=== PATIENT | male | born 1950 | race Caucasian/White ===

== ENCOUNTER → 2017-09-09 | Outpatient (CLI) | payer BC ==
[~2017-09-09] MED LIST: ADVIN50/60 INH; ASPI325T45 PO; MONT1TAB3 PO; OPTIRAY 320 IV PRN
--- NOTE | 2017-09-09 08:36 | DIAGNOSTIC IMAGING REPORT ---
(CHEST) THORAX WITH CLINICAL HISTORY: 66 years-old Male presenting with PULMONARY NODULES. TECHNIQUE: Multidetector CT imaging of the chest was performed after the administration of intravenous contrast. IV contrast: None. A dose lowering technique was used consistent with the principles of ALARA (as low as reasonably achievable). COMPARISON: 10/30/2016. CT DOSE (mGy.cm): The estimated cumulative dose is 843.24 mGy.cm. FINDINGS: Heel Cover Splitter topogram: Unremarkable. On soft tissue windows, 12 mm nodule in the left lobe of the thyroid with a small focus of calcification. No axillary, supraclavicular, hilar, or mediastinal lymphadenopathy. Normal aorta. Normal heart size. Coronary artery calcification. No pericardial or pleural effusion. Well-defined hypodensity in the right hepatic lobe, indeterminate but likely cyst, unchanged. Moderate to severe parenchymal atrophy of the pancreas. On lung windows, calcified granuloma noted in the right upper lobe. Subpleural solid 3-4 mm nodule in the right lower lobe (series 4 image 222), unchanged. Solid triangular 3-4 mm fissural nodule in the right upper lobe (series 4 image 143), unchanged. Persistent bandlike opacities in the lingula, likely scarring. No new pulmonary nodule. Airways patent. On bone windows, normal osseous structures. IMPRESSION: 1. Stable solid pulmonary nodules measuring up to 3-4 mm. No new pulmonary nodule. No further follow-up is warranted based on these nodules alone. Please refer to below summary of Fleischner Society 2017 recommendations for follow-up of incidental CT nodules (H Katlin et al. Guidelines for management of incidental pulmonary nodules detected on CT images: From the Fleischner Society 2017. Radiology 2017; 284: 228-243.) SOLID NODULES Single nodule; size < 6 mm * Low risk patients: No routine follow-up * High risk patients: Optional CT at 12 months Single nodule; size 6-8 mm * Low risk patients: CT at 6-12 months, then consider CT at 18-24 months * High risk patients: CT at 6-12 months, then at 18-24 months Single nodule; size > 8 mm * Either low or high risk patients: Considered CT at 3 months, PET/CT, or tissue sampling Multiple nodules; size < 6 mm * Low risk patients: No routine follow up * High risk patients: Optional CT at 12 months Multiple nodules; size 6-8 mm * Low risk patients: CT at 3-6 months, then consider CT at 18-24 months * High risk patients: CT at 3-6 months, then at 18-24 months Multiple nodules; size > 8 mm * Low risk patients: CT at 3-6 months, then consider at 18-24 months * High risk patients: CT at 3-6 months, then at 18-24 months Note: These guidelines apply to incidental nodules. These guidelines do not apply to patients younger than 35 years, immunocompromised patients, or patients with cancer. * Low risk patients: Minimal or absent history of smoking and/or other known risk factors * High risk patients: History of smoking, exposure to other carcinogens, emphysema, fibrosis, upper lobe location, family history of lung cancer, etc. * If a nodule up to 8 mm is partly solid or is ground glass, further follow-up is required after 24 months to exclude possible slow growing adenocarcinoma. SUBSOLID NODULES Single ground-glass nodule * Nodule size < 6 mm: No routine follow-up * Nodule size > or = 6 mm: CT at 6-12 months to confirm persistence, then CT every 2 years until 5 years Single part-solid nodule * Nodule size < 6 mm: No routine follow-up * Nodules size > or = 6 mm: CT at 3-6 months to confirm persistence. If unchanged and solid component remains < 6 mm, annual CT should be performed for 5 years Multiple nodules * Nodule size < 6 mm: CT at 3-6 months. If stable, consider CT at 2 and 4 years. * Nodules size > or = 6 mm: CT at 3-6 months. Subsequent management based on the most suspicious nodule(s) Electronically signed by: Francis Guevara M.D. 09/09/2017 8:35 AM Dictated Date/Time: 09/09/2017 8:29 AM
== END | disposition home or self-care (01) ==
LOC: C.CTS 08:10
PROVIDERS: ATTEND Internal Medicine Pulmonary Disease
DX: R91.8 Other nonspecific abnormal finding of lung field (principal)

== ENCOUNTER 2018-03-09 06:44 | Emergency (ER) | payer BC ==
[~2018-03-09] VITALS: Ht 182.9 cm; Wt 140.4 kg
[~2018-03-09 06:44] MED LIST changes: -OPTIRAY 320 IV PRN
[2018-03-09 06:49] VITALS: TEMP 36.5; Ht 182.9 cm; Wt 140.4 kg
[2018-03-09] MEDS ORDERED: METO25TA56 PO (07:32)
[2018-03-09] MEDS ORDERED: VNTHFA/IN INH (07:32)
[2018-03-09] MEDS ORDERED: KETOROLAC TROMETHAMINE 30 MG/ML VIAL IV STA (07:45)
--- NOTE | 2018-03-09 08:08 | DIAGNOSTIC IMAGING REPORT ---
R ANKLE MIN 3 VIEWS ROUTINE HISTORY: 67 years-old Male r ankle pain acute right-sided ankle pain COMPARISON: Right foot radiographs 06/14/2015 TECHNIQUE: 3 views of the right ankle FINDINGS: There is a 2 mm bone fragment adjacent to the medial malleolus seen only on the AP projection demonstrates apparent corticated margins. No acute displaced fracture or dislocation. No osteochondral defect. There is moderate soft tissue swelling about the ankle with a moderate-sized joint effusion. Mild dorsal spurring about the midfoot. No opaque foreign body. IMPRESSION: 1. 2 mm bone fragment adjacent to the medial malleolus appears to have corticated margins suggesting remote avulsion fracture. 2. Moderate circumferential soft tissue swelling with moderate sized joint effusion. No acute displaced fracture or dislocation. The above report was generated using voice recognition software. It may contain grammatical, syntax or spelling errors. Electronically signed by: Shyam Barfield M.D. 03/09/2018 8:06 AM Dictated Date/Time: 03/09/2018 8:03 AM
[2018-03-09 08:24] LABS: BASO % 0.2 %; BASO ABS # 0.02 K/uL (0-0.2); EOS ABS # 0.08 K/uL (0-0.5); HEMOGLOBIN 14.7 g/dL (14.0-18.0); IG# 0.01 K/uL (0.00-0.02); LYMPH % 16.9 %; LYMPH ABS # 1.36 K/uL (1.2-3.4); MEAN CELL VOLUME 88.5 fL (80-100); MEAN CORPUSCULAR HEMOGLOBIN 29.6 pg (25-34); MEAN CORPUSCULAR HGB CONC 33.4 g/dl (32-36); MEAN PLATELET VOLUME 9.6 fL (7.4-10.4); MONO % 8.8 %; MONO ABS # 0.71 K/uL (0.11-0.59); NEUT ABS # 5.88 K/uL (1.4-6.5); PLATELET COUNT 280 K/uL (130-400); RED CELL DISTRIBUTION WIDTH CV 14.3 % (11.5-14.5); RED CELL DISTRIBUTION WIDTH SD 46.7 fL (36.4-46.3); WHITE BLOOD COUNT 8.06 K/uL (4.8-10.8)
[2018-03-09 08:39] LABS: CALCIUM 8.4 mg/dl (8.5-10.1); CREATININE 0.96 mg/dl (0.60-1.40); POTASSIUM 4.3 mmol/L (3.5-5.1); URIC ACID 8.5 mg/dl (2.6-7.2)
[2018-03-09] MEDS ORDERED: MoRPHine SULFATE 4 MG/ML 1 ML CARP\\VIAL IV STA (08:55)
[2018-03-09] MEDS ORDERED: ONDANSETRON INJ 2 MG/ML 2 ML VIAL IV STA (08:55)
[2018-03-09] MEDS ORDERED: NAPR-1169 PO (09:54)
[2018-03-09 10:07] VITALS: BP 120/98; PULSE 60; O2SAT 93
--- NOTE | 2018-03-09 16:06 | EMERGENCY ROOM VISIT NOTE ---
ED Visit Note First contact with patient: 07:15 Chief Complaint: Right ankle pain. History of Present Illness: Mr. Cantu is a 67-year-old white male who ambulates into the ED complaining of medial right ankle pain. Historically patient reports she has a history of gout of the right great toe. Patient reports approximately 24 hours ago he awoke from sleep and noted right ankle pain and swelling. Patient reports her last 24 hours he has been using ice rest and aspirin and had mild improvement of his pain. Currently he is describing his pain as a deep achy sensation. He rates his discomfort 9/10. The pain is nonradiating. The pain worsens with palpation of the bilateral malleoli with prominence over the medial aspect, inversion and eversion of the ankle and ambulation. As previously noted ice, aspirin and rest of improved his discomfort. He denies any associated symptoms including back pain, hip pain, knee pain, lower leg pain, foot weakness/numbness/tingling , recent direct or repetitive trauma to the ankle or foot. Review of Systems: As noted above in history of present illness. Past Medical History: As previously noted, asthma, pneumonia, unspecified knee surgery. Current Medications: Medications Dose Route/Sig Max Daily Dose Days Date Category Naprosyn (Naproxen) 500 Mg Tab 500 Mg PO BID 10 03/09/18 Rx Ventolin Hfa (Albuterol) 200 Puffs/15779 Mcg Aers 2-4 Puffs INH Q6H PRN 03/09/18 Reported Lopressor (Metoprolol Tartrate) 25 Mg Tab 1 Tab PO BID 03/09/18 Reported Aspirin 325 Mg Tab 1,300-1,625 Mg PO 2-3XD 06/14/15 Reported Advair Diskus 500/50 60 Dose (Fluticasone Prop/Salmeterol) 1 Ea Aerp 1 Puff INH BID 06/14/15 Reported Singulair (Montelukast Sodium) 10 Mg Tab 10 Mg PO DAILY 06/14/15 Reported Allergies to Medications: Patient denies Social History: Patient is currently employed; he feels safe in his home environment; he denies tobacco and alcohol use. Physical Examination: Vital Signs: Date Time Temp Pulse Resp B/P (MAP) Pulse Ox O2 Delivery O2 Flow Rate FiO2 03/09/18 10:07 60 16 120/98 93 03/09/18 09:16 50 20 140/92 96 03/09/18 06:49 36.5 70 18 180/110 95 Room Air GENERAL: 67-year-old male in mild to moderate distress due to pain, nontoxic- appearing, afebrile and hemodynamically stable. NEUROLOGICAL: Awake, alert and oriented to person, place and time. Answering questions appropriately and following commands. Limped gait. Good hand eye coordination. No focal motor sensory deficits. SKIN: Warm, dry and pink. HEENT: Atraumatic and normocephalic. BACK: No tenderness over the bony spine. THORAX: Lungs sounds are clear to auscultation and equal bilaterally with symmetrical chest wall. No wheezing, rales or rhonchi. ABDOMEN: Obese, soft and nontender. Positive bowel sounds in all quadrants. No guarding, rigidity or organomegaly. RIGHT LOWER EXTREMITY: Showed no gross deformities. No tenderness throughout the knee, lower leg or foot. Moderate tenderness over the medial and lateral malleoli with moderate swelling and mild erythema. There is mild warmth to the skin but it does not appear cellulitic. There is no lymphangitis. Full range of motion in plantarflexion and dorsiflexion of the ankle and decreased range of motion in inversion and eversion of the ankle due to pain. Throughout the foot the skin was warm and pink and capillary refill was brisk. He was able to distinguish light sensations to all dermatomes of the foot. No calf tenderness or cords. ED Course: Patient is assessed as noted above. Patient's medication list was reviewed. Laboratory Testing: Test 03/09/18 08:14 03/09/18 09:20 Range/Units White Blood Count 8.06 4.8-10.8 K/uL Red Blood Count 4.97 4.7-6.1 M/uL Hemoglobin 14.7 14.0-18.0 g/dL Hematocrit 44.0 42-52 % Mean Corpuscular Volume 88.5 80-100 fL Mean Corpuscular Hemoglobin 29.6 25-34 pg Mean Corpuscular Hemoglobin Concent 33.4 32-36 g/dl Platelet Count 280 130-400 K/uL Mean Platelet Volume 9.6 7.4-10.4 fL Neutrophils (%) (Auto) 73.0 % Lymphocytes (%) (Auto) 16.9 % Monocytes (%) (Auto) 8.8 % Eosinophils (%) (Auto) 1.0 % Basophils (%) (Auto) 0.2 % Neutrophils # (Auto) 5.88 1.4-6.5 K/uL Lymphocytes # (Auto) 1.36 1.2-3.4 K/uL Monocytes # (Auto) 0.71 0.11-0.59 K/uL Eosinophils # (Auto) 0.08 0-0.5 K/uL Basophils # (Auto) 0.02 0-0.2 K/uL RDW Standard Deviation 46.7 36.4-46.3 fL RDW Coefficient of Variation 14.3 11.5-14.5 % Immature Granulocyte % (Auto) 0.1 % Immature Granulocyte # (Auto) 0.01 0.00-0.02 K/uL Sodium Level 138 136-145 mmol/L Potassium Level 4.3 3.5-5.1 mmol/L Chloride Level 105 98-107 mmol/L Carbon Dioxide Level 28 21-32 mmol/L Anion Gap 5.0 3-11 mmol/L Blood Urea Nitrogen 19 7-18 mg/dl Creatinine 0.96 0.60-1.40 mg/dl Est Creatinine Clear Calc Drug Dose 110.0 ml/min Estimated GFR () 95.1 Estimated GFR (Non- 82.0 BUN/Creatinine Ratio 19.8 10-20 Random Glucose 114 70-99 mg/dl Uric Acid 8.5 2.6-7.2 mg/dl Calcium Level 8.4 8.5-10.1 mg/dl Urine Color YELLOW Urine Appearance CLEAR CLEAR Urine pH 5.5 4.5-7.5 Urine Specific [place] 1.030 1.000-1.030 Urine Protein NEG NEG Urine Glucose (UA) NEG NEG Urine Ketones NEG NEG Urine Occult Blood NEG NEG Urine Nitrite NEG NEG Urine Bilirubin NEG NEG Urine Urobilinogen NEG NEG Urine Leukocyte Esterase NEG NEG Right ankle X-Rays: Were read by myself and the radiologist and shows 1. 2 mm bone fragment adjacent to the medial malleolus appears to have corticated margins suggesting remote avulsion fracture and moderate circumferential soft tissue swelling with moderate sized joint effusion. No acute displaced fracture or dislocation. An IV lock was initiated and patient initially received 30 mg of Toradol IV for pain and on reassessment received an additional 4 mg of morphine IV and 4 mg of Zofran IV for his pain. Patient was reassessed multiple times during his stay in the emergency department. Patient's case was reviewed with Dr. Sheppard; we agreed on diagnostic approach, treatment, disposition and plan. Patient was offered a postop shoe, crutches and/or walker and refused. Patient was educated about today's findings and instructed on his treatment plan ; he verbalized understanding and agreement with this plan. Clinical Impression: Right ankle pain. Gout exacerbation. Decision-Making: Initially my differential diagnosis I considered ankle sprain, gout exacerbation, joint infection, skin infection and other causes. Disposition: Patient discharged home in stable condition accompanied by his ; prior to departure he was reassessed and subjectively reported he was feeling better and rated his discomfort 2/10. Plan: Patient was encouraged to continue his current medications as prescribed. Patient was prescribed 500 mg of naproxen 2 times a day until resolution of symptoms. Patient was encouraged to keep his foot elevated while at rest. Patient was encouraged to use walker and nonweightbearing crutches. Patient was encouraged to follow-up with his PCP for recheck. Patient was encouraged return the ED for worsening/uncontrolled pain, uncontrolled swelling, fevers, foot weakness/numbness/tingling or any new/ concerning symptoms.
== END 2018-03-09 10:08 | disposition home or self-care (01) ==
LOC: C.EDB 06:46 → C.EDA 10:08
DX: M25.571 Pain in right ankle and joints of right foot (principal); M10.9 Gout, unspecified; J45.909 Unspecified asthma, uncomplicated

== ENCOUNTER → 2018-03-27 | Outpatient (CLI) | payer BC ==
[~2018-03-27] MED LIST changes: +ASPECOTC PO; -ASPI325T45 PO; +METO25TA56 PO; +VNTHFA/IN INH
== END | disposition home or self-care (01) ==
LOC: C.LABBC 14:09
PROVIDERS: ATTEND Family Medicine Adult Medicine
DX: E04.1 Nontoxic single thyroid nodule (principal); R20.2 Paresthesia of skin

== ENCOUNTER → 2018-04-03 | Outpatient (CLI) | payer BC ==
--- NOTE | 2018-04-03 08:55 | DIAGNOSTIC IMAGING REPORT ---
SOFT TISS HEAD/NECK-THYROID HISTORY: Thyroid nodules E04.1 Thyroid nodulefollow up size of thyroid [id number] COMPARISON: 11/17/2016 FINDINGS: Right lobe: 5.1 cm maximum dimension. Several very small hypoechoic nodules measuring no more than 2 mm. Left lobe: Maximum dimension 4.7 cm. Upper pole nodule measuring 1.8 x 1.5 cm. Several smaller micronodules unchanged Isthmus: No nodules. IMPRESSION: Multicystic multinodular thyroid with the largest at the juncture of the mid and upper pole left lobe. This measures 1.8 x 1.5 cm and is stable to perhaps slightly diminished in size compared to the prior study. The above report was generated using voice recognition software. It may contain grammatical, syntax or spelling errors. Electronically signed by: Adriel Dominguez M.D. 04/03/2018 8:54 AM Dictated Date/Time: 04/03/2018 8:48 AM
== END | disposition home or self-care (01) ==
LOC: C.ULTR 08:22
PROVIDERS: ATTEND Family Medicine Adult Medicine
DX: E04.2 Nontoxic multinodular goiter (principal); E07.89 Other specified disorders of thyroid

== ENCOUNTER 2022-09-16 15:19 | Inpatient (IN) ==
[2022-09-16] MEDS ORDERED: dilTIAZem HCl 5 MG/ML 5 ML VIAL IV STA (15:48)
[2022-09-16] MEDS ORDERED: dilTIAZem HCl 5 MG/ML 5 ML VIAL IV ONE (15:48)
[2022-09-16] MEDS ORDERED: SODIUM CHLORIDE 0.9% 1000ML 1,000 ML IV ONE (15:48)
--- NOTE | 2022-09-16 15:51 | Emergency Department Note ---
Impression & Plan Atrial flutter ADMIT ED Provider Note HPI: The patient is a 71-year-old gentleman with history of COPD, morbid obesity, presents the emergency department with a chief complaint of shortness of breath that has been worsening for the past 2 weeks. Patient states that he was seen today in his outpatient providers office in [place] and advised to come to the emergency department as he was noted to have what appeared to be atrial fibrillation with a heart rate of 150. On arrival here to the ED the patient is saturating well on room air, he is noted to be tachycardic in the 150s, EKG does show evidence of what appears to be atrial flutter with variable block. Patient denies any chest pain, on arrival here to the ED he is otherwise hemodynamically stable, complains of some subjective shortness of breath but he is saturating well on room air and otherwise is in no acute distress. ROS: -Pulmonary: Shortness of breath -Cardio: Palpitations/new onset atrial flutter *10 point review systems was conducted and is otherwise negative unless stated above *Outpatient medications and allergy history reviewed PE: General: Alert HEENT: Normocephalic, trachea midline Eyes: Extraocular eye movement is intact, no scleral erythema Pulmonary: Clear to auscultation bilaterally, no wheezing Cardio: Tachycardic rate and regular rhythm GI: Abdomen is soft, nontender : No suprapubic tenderness MSK: No evidence of trauma or malformation of the extremities, no edema Skin: No evidence of rash Neuro: Alert, no focal deficits Psychiatric: Cooperative monitor car operator: - An order was placed for continuous cardiac monitoring - Patient was noted to be in atrial flutter with a rate of 148 EKG #1: Rate: 121 Rhythm: Atrial flutter with variable AV block Intervals: Within normal limits ST changes: No ST elevation Time: 1535 EKG #2: Rate: 105 Rhythm: Atrial flutter with variable AV block Intervals: Within normal limits ST changes: No ST elevation Time: 1557 Interventions provided in ED: -IV of diltiazem bolus, IV fluid bolus, IV metoprolol, p.o. Eliquis Medical Decision Making: Patient presented to the emergency department with chief complaint of shortness of breath, he was noted to be in atrial flutter with variable block on arrival, he was given a diltiazem bolus with good response. Patient denied any chest pain on arrival. IV was established, lab work obtained, patient was maintained on hospital monitor with good improvement in his rate following IV diltiazem, CT angiography of the chest was obtained that does not show any evidence of pulmonary embolism. Patient's rate did increase slightly to the low 100s and therefore was given dose of IV metoprolol as well as he states this is one of his home medications. This did result in a good response. Lab work otherwise does not show any evidence of critical electrolyte abnormalities, potassium and magnesium are within normal limits, TSH is within normal limits. Troponin was obtained and is slightly elevated at 29.8, patient denies any chest pain, suspect this is demand ischemia, he has been symptomatic for almost 2 weeks, hard to tell when his symptoms began in regards to the atrial flutter, therefore will not consider cardioversion at this time. Patient is rate con trolled, discussed with on-call cardiology, Dr. Jennings, I recommended starting the patient on Xarelto and admission to a telemetry bed for further care. I then discussed case with the on-call hospitalist , Dr. Diane, who admitted the patient to a telemetry bed for further management. * CRITICAL CARE TIME: (45 ) minutes -Stabilization of tachyarrhythmia requiring IV medications for rate control, time spent at the bedside, discussion with other physicians and arrangement of admission for new onset atrial flutter Diagnosis: 1. New onset atrial flutter 2. Dyspnea 3. Elevated high-sensitivity troponin level, mild Disposition: ADMIT Adriel Escalona, DO Emergency Medicine Past Med/Surg History Medical History Chronic sinusitis COPD (chronic obstructive pulmonary disease) Environmental allergies Gout attack History of colon polyps Hypertension Incomplete RBBB Morbid obesity Palpitations Prediabetes Sleep apnea Thyroid nodule Umbilical hernia Surgical History H/O left knee surgery Family History Sister Bipolar disorder Colorectal cancer Grandfather Colorectal cancer Denies family history of Ovarian cancer Prostate cancer Myocardial infarction Breast cancer Social History Smoking Status: Never smoker Second Hand Exposure: No; Hx Alcohol Use: No Hx Substance Use: No Preferred Language: Dutch Communication Ability: Effective Visual Impairment: Limited Hearing Ability: Normal Public Relations Account Executive Required: No Beliefs That Will Affect Care: None marital status: Current Living Situation: Spouse current occupational status: employed current occupation: self employed How many Children do You have: 1 Feels Safe at Home: Yes Safety Concerns: Feels Safe At This Time Childhood Exposure to Second-Hand Smoke: Yes (dad did ) caffeine: Yes (coffee soda) Dental Care, Regularly: No Physical Activity Frequency: Does not Exercise Seatbelt Use: never Sunscreen Use: No Assistive Devices: Glasses Allergies Allergies Allergy/AdvReac Type Severity Reaction Status Date / Time animal dander Allergy Mild congestion Verified 09/16/22 18:40 mold Allergy Mild congestion Verified 09/16/22 18:40 Home Meds Home Medications Medication Instructions Recorded Confirmed amoxicillin 875 mg-potassium 1 tab PO BID 09/16/22 09/16/22 clavulanate 125 mg tablet meloxicam 15 mg tablet 15 mg PO DAILY 09/16/22 09/16/22 mometasone-formoterol HFA 200 2 inh inhalation BID 09/16/22 09/16/22 mcg-5 mcg/actuation aerosol inhaler (Dulera) prednisone 10 mg tablet 0 mg PO DIRECTED 09/16/22 09/16/22 Previous Rx's Medication Instructions Recorded allopurinol 300 mg tablet 300 mg PO PM #90 tabs 12/03/21 losartan 25 mg tablet 25 mg PO PM #90 tabs 12/03/21 metoprolol tartrate 25 mg tablet 25 mg PO BID #180 tabs 12/03/21 albuterol sulfate 90 mcg/actuation 2 puff inhalation Q6H PRN 04/08/22 aerosol inhaler (Ventolin HFA) shortness of breath or wheezing #8.5 grams Results & Data (ED) Vital Signs Vital Signs - 24 hr 09/16/22 15:24 09/16/22 15:45 09/16/22 15:46 Temperature 37.2 C Temperature Source Temporal Artery Scan Pulse Rate 118 H Pulse Rate [Apical] 154 H Pulse Rhythm [Apical] Pulse Strength [Apical] Respiratory Rate 22 20 Respiratory Effort / Characteristics Non-Labored Spontaneous Respiratory Depth Normal Respiratory Pattern Regular Blood Pressure 124/87 Blood Pressure [Right Arm] 142/104 H Blood Pressure Mean 99 Blood Pressure Mean [Right Arm] 116 Blood Pressure Position Sitting Blood Pressure Position [Right Arm] Pulse Oximetry 95 97 97 Oxygen Delivery Method Room Air Room Air Room Air Sepsis Recent Fever Within 48 Hours No Sepsis New/Unexplained Change in Mental Status N/A Sepsis Action Taken by Nursing No Action Required 09/16/22 15:49 09/16/22 17:19 09/16/22 17:30 Temperature Temperature Source Pulse Rate 132 H 105 H Pulse Rate [Apical] 100 H Pulse Rhythm [Apical] Irregular Pulse Strength [Apical] Normal Respiratory Rate 20 24 Respiratory Effort / Characteristics Labored Respiratory Depth Shallow Respiratory Pattern Tachypnea Blood Pressure 135/94 Blood Pressure [Right Arm] 144/91 H Blood Pressure Mean Blood Pressure Mean [Right Arm] 108 Blood Pressure Position Blood Pressure Position [Right Arm] Sitting Pulse Oximetry 98 96 Oxygen Delivery Method Room Air Room Air Sepsis Recent Fever Within 48 Hours Sepsis New/Unexplained Change in Mental Status Sepsis Action Taken by Nursing Laboratory Data Result diagrams: 09/16/22 15:40 09/16/22 15:40 Lab Results 09/16/22 09/16/22 09/16/22 Range/Units 15:40 15:40 15:40 WBC 12.33 H (4.8-10.8) K/ul RBC 4.87 (4.63-6.08) M/uL Hgb 14.2 (14.0-18.0) g/dl Hct 43.8 (40.1-51.0) % MCV 89.9 (80.0-100.0) fL MCH 29.2 (25.0-34.0) pg MCHC 32.4 (32.0-36.0) g/dL RDW Std Deviation 46.9 H (36.4-46.3) fL RDW Coeff of Michelle 14.3 (11.5-14.5) % Plt Count 284 (130-400) K/uL MPV 10.1 (9.4-12.4) fL Immature Gran % (Auto) 0.3 % Neut % (Auto) 73.9 % Lymph % (Auto) 17.1 % [place] % (Auto) 7.7 % Eos % (Auto) 0.4 % Baso % (Auto) 0.6 % Neut # (Auto) 9.11 H (1.4-6.5) K/uL Lymph # (Auto) 2.11 (1.2-3.4) K/uL [place] # (Auto) 0.95 H (0.24-0.82) K/uL Eos # (Auto) 0.05 (0-0.50) K/uL Baso # (Auto) 0.07 (0-0.2) K/uL Immature Gran # (Auto) 0.04 H (0.00-0.02) K/uL Sodium 142 (136-145) mmol/L Potassium 3.9 (3.5-5.1) mmol/L Chloride 106 (98-107) mmol/L Carbon Dioxide 30 (21-32) mmol/L Anion Gap 6 (3-11) BUN 22 (6-23) mg/dl Creatinine 0.97 (0.6-1.4) mg/dl Est Cr Clr Drug Dosing 104.0 ml/min Est GFR ( Amer) 91.3 ml/min Est GFR (Non-Af Amer) 78.8 ml/min BUN/Creatinine Ratio 22.7 H (10-20) Glucose 112 H (70-99(Fasting)) mg/dl Calcium 8.6 (8.5-10.1) mg/dl Magnesium (1.7-2.4) mg/dl Total Bilirubin 0.7 (0.2-1.0) mg/dl AST 13 (13-39) U/L ALT 21 (7-52) U/L Alkaline Phosphatase 62 (34-104) U/L Troponin I High Sens 29.8 H (0-20) pg/ml Total Protein 5.8 L (6.0-8.3) gm/dl Albumin 3.7 (3.4-5.0) gm/dl Globulin 2.1 L (2.5-4.0) gm/dl Albumin/Globulin Ratio 1.8 (0.9-2) TSH (0.300-4.500) uIu/ml 09/16/22 09/16/22 Range/Units 15:40 15:40 WBC (4.8-10.8) K/ul RBC (4.63-6.08) M/uL Hgb (14.0-18.0) g/dl Hct (40.1-51.0) % MCV (80.0-100.0) fL MCH (25.0-34.0) pg MCHC (32.0-36.0) g/dL RDW Std Deviation (36.4-46.3) fL RDW Coeff of Michelle (11.5-14.5) % Plt Count (130-400) K/uL MPV (9.4-12.4) fL Immature Gran % (Auto) % Neut % (Auto) % Lymph % (Auto) % [place] % (Auto) % Eos % (Auto) % Baso % (Auto) % Neut # (Auto) (1.4-6.5) K/uL Lymph # (Auto) (1.2-3.4) K/uL [place] # (Auto) (0.24-0.82) K/uL Eos # (Auto) (0-0.50) K/uL Baso # (Auto) (0-0.2) K/uL Immature Gran # (Auto) (0.00-0.02) K/uL Sodium (136-145) mmol/L Potassium (3.5-5.1) mmol/L Chloride (98-107) mmol/L Carbon Dioxide (21-32) mmol/L Anion Gap (3-11) BUN (6-23) mg/dl Creatinine (0.6-1.4) mg/dl Est Cr Clr Drug Dosing ml/min Est GFR ( Amer) ml/min Est GFR (Non-Af Amer) ml/min BUN/Creatinine Ratio (10-20) Glucose (70-99(Fasting)) mg/dl Calcium (8.5-10.1) mg/dl Magnesium 2.1 (1.7-2.4) mg/dl Total Bilirubin (0.2-1.0) mg/dl AST (13-39) U/L ALT (7-52) U/L Alkaline Phosphatase (34-104) U/L Troponin I High Sens (0-20) pg/ml Total Protein (6.0-8.3) gm/dl Albumin (3.4-5.0) gm/dl Globulin (2.5-4.0) gm/dl Albumin/Globulin Ratio (0.9-2) TSH 3.087 (0.300-4.500) uIu/ml Administered Medications Allopurinol (Allopurinol 300 Mg Tab) 300 mg PO PM CARMEN Stop: 10/16/22 20:59 Last Admin: 09/16/22 21:03 Dose: 300 mg Documented By: ARR Insulin Aspart (Insulin Aspart Per Unit) 0 units SC ACHS CARMEN Stop: 10/16/22 20:59 Last Admin: 09/16/22 21:05 Dose: Not Given Documented By: ARR Losartan Potassium (Losartan Potassium 25 Mg Tab) 25 mg PO PM CARMEN Stop: 10/16/22 20:59 Last Admin: 09/16/22 21:03 Dose: 25 mg Documented By: ARR Discontinued Medications Aspirin (Aspirin Chew 324 Mg) 324 mg PO NOW STA Stop: 09/16/22 18:19 Last Admin: 09/16/22 18:37 Dose: 324 mg Documented By: RSL Diltiazem HCl (Diltiazem Hcl 5 Mg/Ml 5 Ml Vial) Confirm Administered Dose 25 mg IV .STK-MED ONE Stop: 09/16/22 15:49 Last Admin: 09/16/22 15:53 Dose: Not Given Documented By: QGV Diltiazem HCl (Diltiazem Hcl 5 Mg/Ml 5 Ml Vial) 15 mg IV NOW STA Stop: 09/16/22 15:49 Last Admin: 09/16/22 15:50 Dose: 15 mg Documented By: QGV Co-signed By: MARIS Sodium Chloride (Nss 1000ml) 1,000 mls @ 999 mls/hr IV .Q1H1M ONE Stop: 09/16/22 16:48 Last Infusion: 09/16/22 17:17 Dose: 0 mls/hr Documented By: Admin: 09/16/22 15:52 Dose: 999 mls/hr Documented By: QGV Ioversol (Optiray 320 500ml) 114 ml IV ONCE ONE Stop: 09/16/22 17:49 Last Admin: 09/16/22 17:48 Dose: 114 ml Documented By: [facility] Metoprolol Tartrate (Metoprolol Tartrate 1 Mg/Ml Vial) 5 mg IV NOW STA Stop: 09/16/22 17:23 Last Admin: 09/16/22 17:30 Dose: 5 mg Documented By: RSL Potassium Chloride (Potassium Chloride Crtab 20 Meq Tabcr) 40 meq PO NOW STA Stop: 09/16/22 19:10 Last Admin: 09/16/22 21:02 Dose: 40 meq Documented By: ARR Imaging Data Radiologist's Impression: Chest X-Ray 09/16/22 15:34 SINGLE VIEW CHEST CLINICAL HISTORY: Dyspnea. FINDINGS: An AP, portable, upright chest radiograph is correlated with chest CT dated 09/09/2017. The examination is degraded by portable technique and apical lordotic positioning. The heart is enlarged noting atherosclerotic calcification of the thoracic aorta. The pulmonary vasculature is noncongested. Scarring/atelectasis is seen at the lung bases. A calcified granuloma is again seen in the right upper lobe. The lungs and pleural spaces are otherwise clear. No pneumothorax is seen. The skeletal structures are osteopenic. The bony thorax is grossly intact. Arthritic change is seen in the shoulders. IMPRESSION: No active disease in the chest. ACT 112: Negative or not required by law. Electronically signed by: Fuentes Pizarro M.D. 09/16/2022 4:20 PM Chest CTA 09/16/22 17:23 CT ANGIOGRAM OF THE CHEST CLINICAL HISTORY: Dyspnea. Tachycardia. COMPARISON STUDY: Chest CT dated 09/09/2017. Chest x-ray dated 09/16/2022. TECHNIQUE: Following the IV administration of 114 cc of Optiray 320, CT angiogram of the chest was performed from the upper abdomen to the thoracic inlet utilizing the pulmonary embolus protocol. Images are reviewed in the axial, sagittal, and coronal planes. 3-D MIPS images are created and assessed. IV contrast was administered without complication. A dose lowering technique was utilized adhering to the principles of ALARA. The examination is degraded by motion artifact. CT DOSE: 933.35 mGy.cm FINDINGS: Thyroid: Imaged portions of the thyroid gland are normal in size and attenuation. Thoracic aorta: The thoracic aorta is normal in caliber and demonstrates standard 3-vessel arch anatomy. The thoracic aorta is not opacified. Pulmonary vasculature: The pulmonary trunk is normal in caliber. There are no filling defects identified in main, lobar, or proximal segmental pulmonary b ranches to suggest pulmonary embolus. The segmental and subsegmental vessels are not well assessed due to motion artifact. Heart: The heart is markedly enlarged and without pericardial effusion. The coronary arteries are densely calcified. Lungs and pleural spaces: Evaluation of the lung parenchyma is compromised by motion artifact. There are trace pleural effusions with dependent atelectasis. No airspace consolidation is seen typical for pneumonia. The trachea and central airways are clear. There are scattered calcified granulomas. Mediastinum: Mildly enlarged mediastinal lymph nodes measure up to 15 mm in short axis. Iram: Clear. Axillae: There is no axillary lymphadenopathy. Upper abdomen: There is a tiny hiatal hernia. Diverticula are noted in the partially imaged left colon. Skeletal structures: The skeletal structures are osteopenic. No lytic or blastic bony lesions are seen. IMPRESSION: 1. Motion compromised examination. 2. There is no evidence of pulmonary embolus in the main, lobar, or proximal segmental pulmonary arteries. 3. Marked cardiomegaly and trace pleural effusions. 4. Mildly enlarged mediastinal lymph nodes are nonspecific and may be reactive. 5. Additional findings as above. ACT 112: Negative or not required by law. Electronically signed by: Fuentes Pizarro M.D. 09/16/2022 5:58 PM Discharge Plan Visit Data Chief Complaint: Shortness of Breath/Dyspnea Stated Complaint: SOB ED Provider: Adriel Escalona Discharge Problem: Atrial flutter Patient Disposition: Admitted As Inpatient Discharge Instructions Interventions: ED Discharge Assessment Last Done: 09/16/22 19:48 : Atrial flutter Qualifiers: Atrial flutter type: unspecified Qualified Code(s): I48.92 - Unspecified atrial flutter
[2022-09-16 16:08] LABS: Basophils # (auto) 0.07 K/uL (0-0.2); Basophils % (auto) 0.6 %; Eosinophils # (auto) 0.05 K/uL (0-0.50); Eosinophils % (auto) 0.4 %; Hematocrit (blood only) 43.8 % (40.1-51.0); Hemoglobin 14.2 g/dl (14.0-18.0); Immature Granulocytes # (auto) 0.04 K/uL (0.00-0.02); Immature Granulocytes % (auto) 0.3 %; Lymphocytes # (auto) 2.11 K/uL (1.2-3.4); Lymphocytes % (auto) 17.1 %; Mean Corpuscular Hemoglobin 29.2 pg (25.0-34.0); Mean Corpuscular Hgb Conc 32.4 g/dL (32.0-36.0); Mean Corpuscular Volume 89.9 fL (80.0-100.0); Mean Platelet Volume 10.1 fL (9.4-12.4); Monocytes # (auto) 0.95 K/uL (0.24-0.82); Monocytes % (auto) 7.7 %; Neutrophils # (auto) 9.11 K/uL (1.4-6.5); Neutrophils % (auto) 73.9 %; Platelet Count 284 K/uL (130-400); RDW Coefficient of Variation 14.3 % (11.5-14.5); RDW Standard Deviation 46.9 fL (36.4-46.3); Red Blood Count 4.87 M/uL (4.63-6.08); White Blood Count 12.33 K/ul (4.8-10.8)
--- NOTE | 2022-09-16 16:22 | XRay Report ---
SINGLE VIEW CHEST CLINICAL HISTORY: Dyspnea. FINDINGS: An AP, portable, upright chest radiograph is correlated with chest CT dated 09/09/2017. The examination is degraded by portable technique and apical lordotic positioning. The heart is enlarged noting atherosclerotic calcification of the thoracic aorta. The pulmonary vasculature is noncongeste d. Scarring/atelectasis is seen at the lung bases. A calcified granuloma is again seen in the right u pper lobe. The lungs and pleural spaces are otherwise clear. No pneumothorax is seen. The skeletal st ructures are osteopenic. The bony thorax is grossly intact. Arthritic change is seen in the shoulders . IMPRESSION: No active disease in the chest. ACT 112: Negative or not required by law. Electronically signed by: Fuentes Pizarro M.D. 09/16/2022 4:20 PM
[2022-09-16 16:31] LABS: Albumin Globulin Ratio 1.8 (0.9-2); Albumin Level 3.7 gm/dl (3.4-5.0); BUN Creatinine Ratio 22.7 (10-20); Bilirubin,Total 0.7 mg/dl (0.2-1.0); Calcium 8.6 mg/dl (8.5-10.1); Est GFR (African American) 91.3 ml/min; Est GFR (Non-African American) 78.8 ml/min; Globulin 2.1 gm/dl (2.5-4.0); Potassium 3.9 mmol/L (3.5-5.1); Total Protein 5.8 gm/dl (6.0-8.3)
[2022-09-16] MEDS ORDERED: METOPROLOL TARTRATE 1 MG/ML VIAL IV STA (17:22)
[2022-09-16] MEDS ORDERED: OPTIRAY 320 500ml IV ONE (17:48)
--- NOTE | 2022-09-16 17:59 | CT Scan Report ---
CT ANGIOGRAM OF THE CHEST CLINICAL HISTORY: Dyspnea. Tachycardia. COMPARISON STUDY: Chest CT dated 09/09/2017. Chest x-ray dated 09/16/2022. TECHNIQUE: Following the IV administration of 114 cc of Optiray 320, CT angiogram of the chest was pe rformed from the upper abdomen to the thoracic inlet utilizing the pulmonary embolus protocol. Images are reviewed in the axial, sagittal, and coronal planes. 3-D MIPS images are created and assessed. I V contrast was administered without complication. A dose lowering technique was utilized adhering to the principles of ALARA. The examination is degraded by motion artifact. CT DOSE: 933.35 mGy.cm FINDINGS: Thyroid: Imaged portions of the thyroid gland are normal in size and attenuation. Thoracic aorta: The thoracic aorta is normal in caliber and demonstrates standard 3-vessel arch anato my. The thoracic aorta is not opacified. Pulmonary vasculature: The pulmonary trunk is normal in caliber. There are no filling defects identif ied in main, lobar, or proximal segmental pulmonary branches to suggest pulmonary embolus. The segmen oren and subsegmental vessels are not well assessed due to motion artifact. Heart: The heart is markedly enlarged and without pericardial effusion. The coronary arteries are den sely calcified. Lungs and pleural spaces: Evaluation of the lung parenchyma is compromised by motion artifact. There are trace pleural effusions with dependent atelectasis. No airspace consolidation is seen typical for pneumonia. The trachea and central airways are clear. There are scattered calcified granulomas. Mediastinum: Mildly enlarged mediastinal lymph nodes measure up to 15 mm in short axis. Iram: Clear. Axillae: There is no axillary lymphadenopathy. Upper abdomen: There is a tiny hiatal hernia. Diverticula are noted in the partially imaged left colo n. Skeletal structures: The skeletal structures are osteopenic. No lytic or blastic bony lesions are see n. IMPRESSION: 1. Motion compromised examination. 2. There is no evidence of pulmonary embolus in the main, lobar, or proximal segmental pulmonary daron cindy. 3. Marked cardiomegaly and trace pleural effusions. 4. Mildly enlarged mediastinal lymph nodes are nonspecific and may be reactive. 5. Additional findings as above. ACT 112: Negative or not required by law. Electronically signed by: Fuentes Pizarro M.D. 09/16/2022 5:58 PM
[2022-09-16] MEDS ORDERED: ASPIRIN CHEW 324 MG PO STA (18:18)
--- NOTE | 2022-09-16 18:39 | History & Physical Report ---
Date of Service September 16, 2022 Assessment & Plan (1) Atrial flutter: Plan: -Admit to PCU/tele -Patient is currently afebrile, hemodynamically stable, stable on RA and HR currently in the low 100's -History of frequent PVC's and followed by Cardiology outpatient, noted to be on metoprolol 25 mg BID (missed am dose today), no history of atrial flutter -Received bolus of cardizem, 5 mg IV lopressor, 1L NSS bolus, and 324 mg Aspirin in the ED -ED placed Cardiology consult and spoke to them regarding initial plan, they would like him to start Xarelto tonight, likely Cardioversion in the near future but they would like him to be on Xarelto prior -Monitor on tele and pulse oximetry -Will give his am dose of PO metoprolol now since he missed it, will add prn Lopressor for HR >120 overnight -Initial high sensitivity troponin at 29.8, will repeat another now and monitor for elevations -Mag is WNL, potassium at 3.9, will give him 40 meq PO KCL now -FU with cardiology tomorrow for continued treatment plan -AM CBC and CMP (2) SOB (shortness of breath): Plan: -At this time the patient's SOB is likely due to his atrial flutter -Patient has been treated with Abx and PO steroids outpatient without relief -SOB only with exertion at this time -Leukocytosis likely due to current prednisone treatment, low suspicion for infection at this time, no fevers/chills, chest xray is clear of consolidations, will hold Augmentin for now but will continue with 10 mg PO prednisone for now -Continue albuterol and Dulera (3) Hypertension: Plan: -continue losartan (4) Moderate persistent asthma: Plan: -Stale on RA -Continue albuterol and Dulera (5) COPD (chronic obstructive pulmonary disease): Plan: -Continue albuterol and Dulera (6) Sleep apnea: Plan: -Denies HS Cpap use or previous diagnosis -Would not be surprised if he has CHIOMA (7) Prediabetes: Plan: -Will get A1C -Will check BSG ACHS for now, may become hyperglycemic with continued prednisone treatment, will ordered sliding scale ACHS for now Plan The patient was discussed with Dr. Diane at the time of admission History of Present Illness Chief Complaint: Atrial Flutter Primary Care Provider: MICHAEL Cunha Bruno is a 71 year old male with a PMH significant for HTN, Frequent PVC's, aortic root dilation (4.2 CM as of 01/2022), HFrEF (LVEF of 40-45%), morbid obesity, prediabetes, COPD, moderate-persistent asthma, gout, who presented to the [facility] ED from an acute care center after being found to be in atrial flutter. In the ED the patient was found to be afebrile, hemodynamically stable, stable on RA, and tachycardic (highest HR in the 150's). Initial EKG in the ED showed Atrial flutter with variable A-V block. Labs were remarkable for a leukocytosis of 12.33, absolute neutrophil count of 9.11, stable renal function and electrolytes (waiting on magnesium to result), high sensitivity troponin of 29.8. Chest xray was negative for acute findings. CTA of the chest showed " Motion compromised examination.There is no evidence of pulmonary embolus in the main, lobar, or proximal segmental pulmonary arteries.Marked cardiomegaly and trace pleural effusions. Mildly enlarged mediastinal lymph nodes are nonspecific and may be reactive." Prior to admission the patient was given 1L NSS bolus, Diltiazem bolus of 15 mg, 5 mg IV metoprolol, and 324 mg PO aspirin. The patient's HR fell to the 90's after the initial interventions but repeat EKG showed him still to be in atrial flutter. The patient remained asymptomatic throughout his time in the ED. We were asked to admit the patient for further evaluation and possible cardioversion in the AM. At the time of the exam the patient was resting comfortably in bed in no acute distress with his sitting bedside. He states that he has been dealing with increased SOB with exertion for the past 2-3 weeks. He initially thought this was do to his chronic respiratory issues but his albuterol inhaler was not improving his symptoms. He denies recent fever or chills, cough, sputum production, chest pain, or lightheadedness. He was seen in the acute care clinic at the beginning of the month and completed a course of amoxicillin and prednisone taper. His symptoms did not improve dramatically and he was seen in the allergy/immunology on 09/03/22, per their note, they were concerned for asthma exacerbation and started him on another prednisone taper (of which he is still on), and changed his advair to Dulera 200 mcg, 2 puffs, BID. Since then he states that his symptoms have persisted. He notes being started on Augmentin as well and states that he has one more day until he completes his course. He states that his pulse has been high (up to the 150's) over the past 1-2 weeks. He went to his PCP's office today and they instructed him to come to the ED when he was found to be in aflutter. He denies any SOB or other symptoms at rest. With exertion, he is only experiencing SOB and denies chest pain, lightheadedness, dizziness, or other symptoms. Allergies Allergy/AdvReac Type Severity Reaction Status Date / Time animal dander Allergy Mild congestion Verified 09/16/22 18:40 mold Allergy Mild congestion Verified 09/16/22 18:40 Home Medications Medication Instructions Recorded Confirmed Type allopurinol 300 mg tablet 300 mg PO PM #90 tabs 12/03/21 09/16/22 Rx losartan 25 mg tablet 25 mg PO PM #90 tabs 12/03/21 09/16/22 Rx albuterol sulfate 90 mcg/actuation 2 puff inhalation Q6H PRN 04/08/22 09/16/22 Rx aerosol inhaler (Ventolin HFA) shortness of breath or wheezing #8.5 grams mometasone-formoterol HFA 200 2 inh inhalation BID 09/16/22 09/16/22 History mcg-5 mcg/actuation aerosol inhaler (Dulera) metoprolol succinate 50 mg 50 mg PO BID #60 tabs 09/19/22 Rx tablet,extended release 24 hr rivaroxaban 20 mg tablet (Xarelto) 20 mg PO DAILY #30 tabs 09/19/22 Rx Past Med/Surg History Medical History (Updated 09/20/22 @ 10:05 by Savanna Nicholson RN) Chronic sinusitis COPD (chronic obstructive pulmonary disease) Environmental allergies Gout attack History of cardioversion 09/18/22 at [facility]- Dr. Ravindra Arellano History of colon polyps Hypertension Incomplete RBBB Morbid obesity Palpitations Prediabetes Sleep apnea Thyroid nodule Umbilical hernia Surgical History H/O left knee surgery Family History Sister Bipolar disorder Colorectal cancer Grandfather Colorectal cancer Denies family history of Ovarian cancer Prostate cancer Myocardial infarction Breast cancer Social History Smoking Status: Never smoker Second Hand Exposure: No; Hx Alcohol Use: No Hx Substance Use: No Preferred Language: Japanese Communication Ability: Effective Visual Impairment: Limited Hearing Ability: Normal Experimental Worker Required: No Beliefs That Will Affect Care: None marital status: Current Living Situation: Spouse current occupational status: employed current occupation: self employed How many Children do You have: 1 Feels Safe at Home: Yes Childhood Exposure to Second-Hand Smoke: Yes (dad did ) caffeine: Yes (coffee soda) Dental Care, Regularly: No Physical Activity Frequency: Does not Exercise Seatbelt Use: never Sunscreen Use: No Assistive Devices: None Review of Systems Review of Systems: Denies current fever, chills, headache, changes in vision, hearing, taste, and smell, chest pain, cough, abdominal pain, nausea, vomiting, diarrhea, hematemesis, melena, dysuria, hematuria, and recent falls. All systems have been reviewed and are otherwise negative. Physical Exam Physical Exam: Physical Exam: General: In no acute distress, stated age, chronically ill-appearing HEENT: Normocephalic, atraumatic, no scleral icterus, pupils around round, s ymmetrical, and reactive to light, moist mucus membranes, trachea midline, no thyromegaly Chest/Pulm: No respiratory distress, symmetrical chest expansion, mild expiratory wheezing throughout Cardiac: tachycardic rate, irregular rhythm, no murmurs noted Abdomen: Negative for ascites and bruising, normoactive bowel sounds, soft, non-tender to palpation throughout Musculoskeletal: Symmetrical and without signs of acute trauma, upper and lower extremities with full ROM, no atrophy, spasticity, or flaccidity Extremities: Radial, dorsalis pedis, and posterior tibial pulses are intact and symmetrical, no edema noted in the BL LE's Skin: Warm, dry, no rashes , lesions, or scars noted Neuro: Alert and oriented to person, place, month, year, and president, no focal defects, CN II-XII tested and intact, finger to nose test negative, no tremors noted Psych: No acute distress, calm and cooperative during the exam Results & Data Results & Data ([facility]) Vital Signs (Past 12 Hours) Vital Signs Temp Pulse Pulse Resp BP BP Pulse Ox 09/16/22 17:30 105 H 135/94 09/16/22 17:19 100 H 24 144/91 H 96 09/16/22 15:49 132 H 20 98 09/16/22 15:46 97 09/16/22 15:45 154 H 20 142/104 H 97 09/16/22 15:24 37.2 C 118 H 22 124/87 95 O2 Del Method 09/16/22 17:30 09/16/22 17:19 Room Air 09/16/22 15:49 Room Air 09/16/22 15:46 Room Air 09/16/22 15:45 Room Air 09/16/22 15:24 Room Air Laboratory Results Abnormal lab results 09/16/22 09/16/22 09/16/22 Range/Units 15:40 15:40 15:40 WBC 12.33 H (4.8-10.8) K/ul RDW Std Deviation 46.9 H (36.4-46.3) fL Neut # (Auto) 9.11 H (1.4-6.5) K/uL [place] # (Auto) 0.95 H (0.24-0.82) K/uL Immature Gran # (Auto) 0.04 H (0.00-0.02) K/uL BUN/Creatinine Ratio 22.7 H (10-20) Glucose 112 H (70-99(Fasting)) mg/dl Troponin I High Sens 29.8 H (0-20) pg/ml Total Protein 5.8 L (6.0-8.3) gm/dl Globulin 2.1 L (2.5-4.0) gm/dl Diagnostic Findings Chest X-Ray 09/16/22 15:34 SINGLE VIEW CHEST CLINICAL HISTORY: Dyspnea. FINDINGS: An AP, portable, upright chest radiograph is correlated with chest CT dated 09/09/2017. The examination is degraded by portable technique and apical lordotic positioning. The heart is enlarged noting atherosclerotic calcification of the thoracic aorta. The pulmonary vasculature is noncongested. Scarring/atelectasis is seen at the lung bases. A calcified granuloma is again seen in the right upper lobe. The lungs and pleural spaces are otherwise clear. No pneumothorax is seen. The skeletal structures are osteopenic. The bony thorax is grossly intact. Arthritic change is seen in the shoulders. IMPRESSION: No active disease in the chest. ACT 112: Negative or not required by law. Electronically signed by: Fuentes Pizarro M.D. 09/16/2022 4:20 PM Chest CTA 09/16/22 17:23 CT ANGIOGRAM OF THE CHEST CLINICAL HISTORY: Dyspnea. Tachycardia. COMPARISON STUDY: Chest CT dated 09/09/2017. Chest x-ray dated 09/16/2022. TECHNIQUE: Following the IV administration of 114 cc of Optiray 320, CT angiogram of the chest was performed from the upper abdomen to the thoracic inlet utilizing the pulmonary embolus protocol. Images are reviewed in the axial, sagittal, and coronal planes. 3-D MIPS images are created and assessed. IV contrast was administered without complication. A dose lowering technique was utilized adhering to the principles of ALARA. The examination is degraded by motion artifact. CT DOSE: 933.35 mGy.cm FINDINGS: Thyroid: Imaged portions of the thyroid gland are normal in size and attenuation. Thoracic aorta: The thoracic aorta is normal in caliber and demonstrates standard 3-vessel arch anatomy. The thoracic aorta is not opacified. Pulmonary vasculature: The pulmonary trunk is normal in caliber. There are no filling defects identified in main, lobar, or proximal segmental pulmonary branches to suggest pulmonary embolus. The segmental and subsegmental vessels are not well assessed due to motion artifact. Heart: The heart is markedly enlarged and without pericardial effusion. The coronary arteries are densely calcified. Lungs and pleural spaces: Evaluation of the lung parenchyma is compromised by motion artifact. There are trace pleural effusions with dependent atelectasis. No airspace consolidation is seen typical for pneumonia. The trachea and central airways are clear. There are scattered calcified granulomas. Mediastinum: Mildly enlarged mediastinal lymph nodes measure up to 15 mm in short axis. Iram: Clear. Axillae: There is no axillary lymphadenopathy. Upper abdomen: There is a tiny hiatal hernia. Diverticula are noted in the partially imaged left colon. Skeletal structures: The skeletal structures are osteopenic. No lytic or blastic bony lesions are seen. IMPRESSION: 1. Motion compromised examination. 2. There is no evidence of pulmonary embolus in the main, lobar, or proximal segmental pulmonary arteries. 3. Marked cardiomegaly and trace pleural effusions. 4. Mildly enlarged mediastinal lymph nodes are nonspecific and may be reactive. 5. Additional findings as above. ACT 112: Negative or not required by law. Electronically signed by: Fuentes Pizarro M.D. 09/16/2022 5:58 PM ECG Additional Comments: Atrial flutter with variable A-V block with premature ventricular or aberrantly conducted complexes Left axis deviation Inferior infarct , possibly acute ACUTE NH / STEMI Abnormal ECG No previous ECGs available Code Status & VTE Plan Code Status Full code VTE Prophylaxis Plan VTE Prophylaxis will be ordered: Yes Supervising Physician Co-Signing Physician Notes Patient seen and examined at bedside, during face to face encounter obtained a history and physical examination. I discussed plan of care with JOSEPH Cole and patient. I reviewed above note and agree with it. Patient will be admitted for atrial flutter, will continue chronotropic meds PG Care Time/CCT Total # of Minutes Spent Total Time Spent with Patient: Total time spent is greater than 50% in coordination of care (as documented) at patient's floor/unit and/or counseling patient: [place] [address] Initial Inpt Care Lvl 3 Patient Type Established Medical Decision Making Moderate Complexity Diagnoses Atrial flutter I48.92 SOB (shortness of breath) R06.02 Hypertension I10 Moderate persistent asthma J45.40 COPD (chronic obstructive pulmonary disease) J44.9 COPD type: unspecified COPD Sleep apnea G47.30 Prediabetes R73.03 (1) COPD (chronic obstructive pulmonary disease) COPD type: unspecified COPD Qualified Code(s): J44.9 - Chronic obstructive pulmonary disease, unspecified
[2022-09-16] MEDS ORDERED: POTASSIUM CHLORIDE CRTAB 20 MEQ TABCR PO STA (19:09)
[2022-09-16] MEDS ORDERED: GLUCOSE 40% GEL 15 GM TUBE PO PRN (20:04)
[2022-09-16] MEDS ORDERED: ACETAMINOPHEN 325 MG TAB PO PRN (20:04)
[2022-09-16] MEDS ORDERED: GLUCOSE 10 TAB/TUBE PO PRN (20:04)
[2022-09-16] MEDS ORDERED: GLUCAGON FOR INJ 1 MG VIAL SQ PRN (20:04)
[2022-09-16] MEDS ORDERED: ALBUTEROL HFA 8 GM INHALER INH PRN (20:04)
[2022-09-16] MEDS ORDERED: CARBOHYDRATES FOR HYPOGLYCEMIA PO PRN (20:04)
[2022-09-16] MEDS ORDERED: METOPROLOL TARTRATE 1 MG/ML VIAL IV PRN (20:04)
[2022-09-16] MEDS ORDERED: DEXTROSE 50% 50 ML SYRINGE IV PRN (20:04)
[2022-09-16] MEDS ORDERED: NON-FORMULARY MEDICATION (Mometasone-Formoterol [Dulera] 200-5 mcg/actuation HFA aerosol i INH SCH (21:00)
[2022-09-16] MEDS: LOSARTAN POTASSIUM 25 MG TAB PO SCH (21:03)
[2022-09-16] MEDS: allopurinoL 300 MG TAB PO SCH (21:03)
[2022-09-16] MEDS: INSULIN ASPART PER UNIT SC SCH (21:05)
[2022-09-16] MEDS: RIVAROXABAN 20 MG TAB PO SCH (21:55)
[2022-09-16 22:13] LABS: Appearance Urine Clear (Clear); Bilirubin Urine Negative (Negative); Blood Urine Negative (Negative); Color Urine Yellow; Glucose Urine UA Negative (Negative); Ketones Urine Negative (Negative); Leukocyte Esterase Urine Negative (Negative); Nitrite Urine Negative (Negative); Protein Urine Negative (Negative); Specific Gravity Urine > 1.045 (1.000-1.030); Urobilinogen Urine Negative (Negative)
[2022-09-17] MEDS ORDERED: METOPROLOL TARTRATE 1 MG/ML VIAL IV STA (03:19)
[2022-09-17 06:26] LABS: Estimated Average Glucose 137 mg/dl; Hemoglobin A1C 6.4 % (4.5-5.6)
[2022-09-17 06:42] LABS: Basophils # (auto) 0.06 K/uL (0-0.2); Basophils % (auto) 0.5 %; Eosinophils # (auto) 0.11 K/uL (0-0.50); Hematocrit (blood only) 41.6 % (40.1-51.0); Hemoglobin 13.1 g/dl (14.0-18.0); Immature Granulocytes # (auto) 0.04 K/uL (0.00-0.02); Immature Granulocytes % (auto) 0.4 %; Lymphocytes # (auto) 2.38 K/uL (1.2-3.4); Lymphocytes % (auto) 21.8 %; Mean Corpuscular Hemoglobin 28.5 pg (25.0-34.0); Mean Corpuscular Hgb Conc 31.5 g/dL (32.0-36.0); Mean Corpuscular Volume 90.4 fL (80.0-100.0); Mean Platelet Volume 10.2 fL (9.4-12.4); Monocytes # (auto) 0.75 K/uL (0.24-0.82); Monocytes % (auto) 6.9 %; Neutrophils # (auto) 7.59 K/uL (1.4-6.5); Neutrophils % (auto) 69.4 %; Platelet Count 265 K/uL (130-400); RDW Coefficient of Variation 14.5 % (11.5-14.5); RDW Standard Deviation 47.5 fL (36.4-46.3); White Blood Count 10.93 K/ul (4.8-10.8)
[2022-09-17 07:06] LABS: Albumin Globulin Ratio 1.6 (0.9-2); Albumin Level 3.4 gm/dl (3.4-5.0); BUN Creatinine Ratio 25.8 (10-20); Bilirubin,Total 0.8 mg/dl (0.2-1.0); Calcium 8.2 mg/dl (8.5-10.1); Est GFR (African American) 100.4 ml/min; Est GFR (Non-African American) 86.6 ml/min; Globulin 2.1 gm/dl (2.5-4.0); Potassium 4.3 mmol/L (3.5-5.1); Total Protein 5.5 gm/dl (6.0-8.3)
[2022-09-17 07:11] LABS: Troponin I High Sensitivity 36.6 pg/ml (0-20)
[2022-09-17] MEDS: INSULIN ASPART PER UNIT SC SCH ×4 (07:51→20:48)
[2022-09-17] MEDS: FLUTICASONE/VILANTEROL 200/25MCG 14 PUFFS/INHALER INH SCH (08:40)
[2022-09-17] MEDS: predniSONE 10 MG TABLET PO SCH (08:41)
[2022-09-17] MEDS ORDERED: METOPROLOL TARTRATE 25 MG TAB PO SCH (09:00)
[2022-09-17] MEDS: RIVAROXABAN 20 MG TAB PO SCH (09:50)
--- NOTE | 2022-09-17 10:46 | Cardiology Consultation ---
Date of Consultation September 17, 2022 Assessment & Plan (1) Atrial flutter: (2) PVCs (premature ventricular contractions): (3) Left ventricular systolic dysfunction: Patient with several weeks of progressive dyspnea on exertion. Onset of atrial flutter likely at least 1 week ago if not 3-4 weeks ago. Suspect acute LV systolic dysfunction related to the tachycardia. Recommend proceeding with VEENA guided cardioversion. Patient agreeable. Had Xarelto yesterday and again today. Will arrange VEENA /CV today or for am tomorrow pending scheduling. History of Present Illness Attending Physician: Carlo Gonzales History of Present Illness Mr Cantu is a 71 year old male [facility]. Patient is known to the undersigned. I have followed him for mild left ventricular systolic dysfunction, LVEF in the range of 45%, felt to be related to nonischemic cardiomyopathy, and frequent PVCs. The patient has a history of obesity, BMI 43 kg/m, and COPD/asthma. He notes his recent health concerns date back to about a month ago. He notes having had several COVID exposures and feeling generalized illness. Subsequently he felt short of breath and he thought that it was his asthma acting up. He was seen about 2-1/2 weeks ago and was prescribed a course of prednisone and a chest x-ray was reportedly suggestive of pneumonia. He was then prescribed a course of azithromycin, but his shortness of breath has persisted. He ultimately presented to the emergency room yesterday, and was found to be in atrial flutter, initial ventricular rate approximately 150 bpm. His heart rates have improved overnight with administration of oral metoprolol and currently at rest his ventricular rate is in the range of 90 to 100 bpm, but he becomes very tachycardic with minimal exertion. He received a dose of Xarelto last night and again this morning. He does not have a past history of atrial arrhythmias. Allergies Allergy/AdvReac Type Severity Reaction Status Date / Time animal dander Allergy Mild congestion Verified 09/16/22 18:40 mold Allergy Mild congestion Verified 09/16/22 18:40 Home Medications Medication Instructions Recorded Confirmed Type allopurinol 300 mg tablet 300 mg PO PM #90 tabs 12/03/21 09/16/22 Rx losartan 25 mg tablet 25 mg PO PM #90 tabs 12/03/21 09/16/22 Rx metoprolol tartrate 25 mg tablet 25 mg PO BID #180 tabs 12/03/21 09/16/22 Rx albuterol sulfate 90 mcg/actuation 2 puff inhalation Q6H PRN 04/08/22 09/16/22 Rx aerosol inhaler (Ventolin HFA) shortness of breath or wheezing #8.5 grams amoxicillin 875 mg-potassium 1 tab PO BID 09/16/22 09/16/22 History clavulanate 125 mg tablet meloxicam 15 mg tablet 15 mg PO DAILY 09/16/22 09/16/22 History mometasone-formoterol HFA 200 2 inh inhalation BID 09/16/22 09/16/22 History mcg-5 mcg/actuation aerosol inhaler (Dulera) prednisone 10 mg tablet 0 mg PO DIRECTED 09/16/22 09/16/22 History Patient History Medical History Chronic sinusitis COPD (chronic obstructive pulmonary disease) Environmental allergies Gout attack History of colon polyps Hypertension Incomplete RBBB Morbid obesity Palpitations Prediabetes Sleep apnea Thyroid nodule Umbilical hernia Surgical History H/O left knee surgery Family History Sister Bipolar disorder Colorectal cancer Grandfather Colorectal cancer Denies family history of Ovarian cancer Prostate cancer Myocardial infarction Breast cancer Social History Smoking Status: Never smoker Second Hand Exposure: No; Hx Alcohol Use: No Hx Substance Use: No Preferred Language: Nepali Communication Ability: Effective Visual Impairment: Limited Hearing Ability: Normal Group Home Supervisor Required: No Beliefs That Will Affect Care: None marital status: Current Living Situation: Spouse current occupational status: employed current occupation: self employed How many Children do You have: 1 Feels Safe at Home: Yes Safety Concerns: Feels Safe At This Time Childhood Exposure to Second-Hand Smoke: Yes (dad did ) caffeine: Yes (coffee soda) Dental Care, Regularly: No Physical Activity Frequency: Does not Exercise Seatbelt Use: never Sunscreen Use: No Assistive Devices: Glasses Review of Systems Review of Systems: All systems reviewed & are unremarkable except as noted in HPI & below Physical Exam Physical Exam: Temp Pulse Resp BP Pulse Ox O2 Del Method 36.7 C 111 H 19 122/89 96 09/17/22 07:24 09/17/22 08:00 09/17/22 07:24 09/17/22 07:24 09/17/22 07:24 09/17/22 08:00 Constitutional: WD/WN, vitals as above Respiratory: normal respiratory effort, lungs clear to auscultation Cardiovascular: Rate/Rhythm: regular rhythm and + tachycardic Heart Sounds: normal S1 and normal S2; no murmur Gastrointestinal (Abdomen): normal bowel sounds, soft, nontender, no hepatosplenomegaly Neurologic: PERRL, EOMI, accommodation nl, no face palsy, no dysarthria Results & Data ([facility]) Laboratory Results Cardiac Enzymes 09/16/22 09/16/22 09/16/22 Range/Units 15:40 15:40 20:25 AST 13 (13-39) U/L Troponin I High Sens 29.8 H 36.6 H (0-20) pg/ml 09/17/22 09/17/22 09/17/22 Range/Units 00:21 05:58 05:58 AST Cancelled 13 (13-39) U/L Troponin I High Sens 40.2 H 36.6 H (0-20) pg/ml CBC 09/16/22 09/17/22 Range/Units 15:40 05:58 WBC 12.33 H 10.93 H (4.8-10.8) K/ul RBC 4.87 4.60 L (4.63-6.08) M/uL Hgb 14.2 13.1 L (14.0-18.0) g/dl Hct 43.8 41.6 (40.1-51.0) % Plt Count 284 265 (130-400) K/uL Neut # (Auto) 9.11 H 7.59 H (1.4-6.5) K/uL Lymph # (Auto) 2.11 2.38 (1.2-3.4) K/uL [place] # (Auto) 0.95 H 0.75 (0.24-0.82) K/uL Eos # (Auto) 0.05 0.11 (0-0.50) K/uL Baso # (Auto) 0.07 0.06 (0-0.2) K/uL Comprehensive Metabolic Panel 09/16/22 09/17/22 09/17/22 Range/Units 15:40 05:58 05:58 Sodium 142 Cancelled 141 (136-145) mmol/L Potassium 3.9 Cancelled 4.3 (3.5-5.1) mmol/L Chloride 106 Cancelled 105 (98-107) mmol/L Carbon Dioxide 30 Cancelled 31 (21-32) mmol/L BUN 22 Cancelled 23 (6-23) mg/dl Creatinine 0.97 Cancelled 0.89 (0.6-1.4) mg/dl Glucose 112 H Cancelled 122 H (70-99(Fasting)) mg/dl Calcium 8.6 Cancelled 8.2 L (8.5-10.1) mg/dl AST 13 Cancelled 13 (13-39) U/L ALT 21 Cancelled 20 (7-52) U/L Alkaline Phosphatase 62 Cancelled 58 (34-104) U/L Total Protein 5.8 L Cancelled 5.5 L (6.0-8.3) gm/dl Albumin 3.7 Cancelled 3.4 (3.4-5.0) gm/dl Diagnostic Findings CT angiogram performed overnight last night was compromised due to motion artifact, with no definite pulmonary embolism, enlargement of the cardiac silhouette noted, with trace pleural effusions EKG performed 09/16/2022 at 1535 and reviewed independently reveals atrial flutter at 121 bpm with occasional PVCs. Summary of ttecho performed this am: Atrial flutter with rapid ventricular response noted at time of echocardiogram. The left ventricle is moderately dilated. There is severe global hypokinesis of the left ventricle. Left ventricular systolic function is severely reduced. The LV Ejection Fraction = 25-30%. The right ventricle is normal in size and function. AT least mild mitral regurgitation is present, with an eccentric MR jet noted. There is mild tricuspid regurgitation. Mild pulmonary hypertension is present. The pulmonary artery systolic pressure is estimated to be 40 mm Hg. (1) Atrial flutter Atrial flutter type: unspecified Qualified Code(s): I48.92 - Unspecified atrial flutter
--- NOTE | 2022-09-17 12:58 | Communication Note ---
Date of Service: September 17, 2022 I discussed the patient's echocardiogram results with him. Given severe left ventricular systolic dysfunction, ejection fraction the range of 25 to 30%, previously been 45%, clinic that attempting to restore sinus rhythm is important for him especially given his symptoms. Due to scheduling issues, will advance his diet for today, and make him n.p.o. after midnight with plans for transesophageal echocardiogram guided direct- current cardioversion tomorrow 09/18/2022. Increase metoprolol tartrate to 25 mg 4 times daily. Continue Xarelto. I updated his nurse by phone, and I updated the patient and his spouse by phone.
[2022-09-17] MEDS: METOPROLOL TARTRATE 25 MG TAB PO SCH ×3 (13:23→20:48)
--- NOTE | 2022-09-17 14:14 | Electrocardiogram Report ---
Test Reason : Blood Pressure : / mmHG Vent. Rate : 121 BPM Atrial Rate : 300 BPM P-R Int : 000 ms QRS Dur : 092 ms QT Int : 300 ms P-R-T Axes : -88 -35 067 degrees QTc Int : 426 ms Atrial flutter with variable A-V block with premature ventricular or aberrantly conducted complexes Left axis deviation Abnormal ECG No previous ECGs available Confirmed by Km Powell ([id number]) on 09/17/2022 2:13:45 PM Referred By: Confirmed By:Km Powell
--- NOTE | 2022-09-17 14:14 | Electrocardiogram Report ---
Test Reason : Blood Pressure : / mmHG Vent. Rate : 105 BPM Atrial Rate : 312 BPM P-R Int : 000 ms QRS Dur : 086 ms QT Int : 308 ms P-R-T Axes : -89 -27 067 degrees QTc Int : 407 ms Poor data quality, interpretation may be adversely affected Atrial flutter with variable A-V block with premature ventricular or aberrantly conducted complexes Abnormal ECG When compared with ECG of 16-SEP-2022 15:35, No significant change was found Confirmed by Km Powell ([id number]) on 09/17/2022 2:14:03 PM Referred By: Dominic Sawyer Confirmed By:Km Powell
[2022-09-17] MEDS: LOSARTAN POTASSIUM 25 MG TAB PO SCH (20:48)
[2022-09-17] MEDS: allopurinoL 300 MG TAB PO SCH (20:48)
--- NOTE | 2022-09-17 21:36 | Hospitalist Progress Note ---
Date of Service September 17, 2022 Assessment & Plan (1) Atrial flutter: Plan: Appreciate cardiology consultation by Dr Arellano, [facility]. Cont beta blockers for rate control. Severely depressed LV function on echo today - likely tachy-arrhythmia induced by the a.flutter. Dr Arellano recommends VEENA cardioversion. Xarelto 20mg daily was initiated yesterday. Will need clemons check before discharge. NPO after MN tonight. VEENA cardioversion tomorrow by Dr Arellano. (2) Acute systolic CHF (congestive heart failure): Plan: EF 25-30% on today's echo, likely due to rapid atrial flutter. Remains on beta blockers. Remarkably he appears compensated from volume standpoint both clinically and radiographically. VEENA cardioversion planned tomorrow am to restore NSR. If we can control aflutter hopefully he will have recovery of his LV Function over time. Appreciate cardiology assistance and recs. Continue losartan. Consider low-dose prn lasix at discharge for any weight gain, etc. (3) SOB (shortness of breath): Plan: Likely due to rapid aflutter and severe systolic CHF. See above. CTA chest without PE, pneumonia, or pulmonary edema. I suspect his dyspnea will improve once NSR is restored. Doubt asthma contributing to current symptoms. (4) Hypertension: Plan: continue losartan continue metoprolol (5) Moderate persistent asthma: Plan: Seen by May allergy on 09/03/22. Placed on 16-day prednisone taper during that visit for suspected asthma exacerbation. It started with 40mg with slow wean down to 10mg. Currently on 10mg. Finish the taper. Likely the cause of his leukocytosis. No wheezing on exam today. His asthma is not the cause of current symptoms. Cont dulera. (6) Sleep apnea: Plan: at risk of such given morbid obesity and large neck size along with crowded posterior pharynx sleep study strongly advised (7) Prediabetes: Plan: Hba1c 6.4% - borderline full-blown T2DM. Consider metformin at discharge. (8) Morbid obesity: Plan: BMI 43 Plan daughter extensively updated at bedside NPO after MN tonight for VEENA cardioversion tomorrow am Admission and Anticipated Discharge Date Admission Date: September 16, 2022 Subjective patient resting comfortably in bed at rest no dyspnea, palpitations or orthopnea only symptom is MANNING with minimal activity his daughter was at bedside we discussed the a.flutter, echo results from today, VEENA cardioversion tomorrow am, stroke risk anticoagulation, etc tele overnight - persistent a.flutter, most rates >100 Review of Systems Review of Systems: gen - no fever cv - no chest pain pulm - no cough; confirms lack of response recently to abx, steroids, bronchodilators GI - no nausea/emesis Physical Exam Physical Exam: gen - morbidly obese, NAD neck - no JVD mouth - MMM heart - tachy, s1 s2, no murmur lungs - CTA b/l, minimally decreased BS bases abd - soft NT ND BS+ ext - minimal edema b/l legs, pulses 2+ b/l psych - a/o x 3 Results & Data Results & Data ([facility]) Vital Signs (Past 12 Hours) Vital Signs Temp Pulse Resp BP Pulse Ox O2 Del Method 09/17/22 19:23 36.4 C L 101 H 20 114/67 95 Room Air 09/17/22 15:29 36.3 C L 92 H 20 111/82 94 Room Air 09/17/22 11:30 36.7 C 132 H 21 130/96 95 Room Air Laboratory Results Laboratory Results - last 24 hr 09/16/22 09/16/22 09/17/22 20:25 22:04 00:21 WBC RBC Hgb Hct MCV MCH MCHC RDW Std Deviation RDW Coeff of Michelle Plt Count MPV Immature Gran % (Auto) Neut % (Auto) Lymph % (Auto) [place] % (Auto) Eos % (Auto) Baso % (Auto) Neut # (Auto) Lymph # (Auto) [place] # (Auto) Eos # (Auto) Baso # (Auto) Immature Gran # (Auto) Sodium Potassium Chloride Carbon Dioxide Anion Gap BUN Creatinine Est Cr Clr Drug Dosing Est GFR ( Amer) Est GFR (Non-Af Amer) BUN/Creatinine Ratio Glucose POC Glucose Estimat Average Glucose 137 Hemoglobin A1c 6.4 H Calcium Total Bilirubin AST ALT Alkaline Phosphatase Troponin I High Sens 40.2 H Total Protein Albumin Globulin Albumin/Globulin Ratio Urine Color Yellow Urine Appearance Clear Urine pH 5.0 Ur Specific [place] > 1.045 H Urine Protein Negative Urine Glucose (UA) Negative Urine Ketones Negative Urine Blood Negative Urine Nitrite Negative Urine Bilirubin Negative Urine Urobilinogen Negative Ur Leukocyte Esterase Negative 09/17/22 09/17/22 09/17/22 05:58 05:58 05:58 WBC 10.93 H RBC 4.60 L Hgb 13.1 L Hct 41.6 MCV 90.4 MCH 28.5 MCHC 31.5 L RDW Std Deviation 47.5 H RDW Coeff of Michelle 14.5 Plt Count 265 MPV 10.2 Immature Gran % (Auto) 0.4 Neut % (Auto) 69.4 Lymph % (Auto) 21.8 [place] % (Auto) 6.9 Eos % (Auto) 1.0 Baso % (Auto) 0.5 Neut # (Auto) 7.59 H Lymph # (Auto) 2.38 [place] # (Auto) 0.75 Eos # (Auto) 0.11 Baso # (Auto) 0.06 Immature Gran # (Auto) 0.04 H Sodium Cancelled 141 Potassium Cancelled 4.3 Chloride Cancelled 105 Carbon Dioxide Cancelled 31 Anion Gap Cancelled 5 BUN Cancelled 23 Creatinine Cancelled 0.89 Est Cr Clr Drug Dosing Cancelled 114.0 Est GFR ( Amer) Cancelled 100.4 Est GFR (Non-Af Amer) Cancelled 86.6 BUN/Creatinine Ratio Cancelled 25.8 H Glucose Cancelled 122 H POC Glucose Estimat Average Glucose Hemoglobin A1c Calcium Cancelled 8.2 L Total Bilirubin Cancelled 0.8 AST Cancelled 13 ALT Cancelled 20 Alkaline Phosphatase Cancelled 58 Troponin I High Sens 36.6 H Total Protein Cancelled 5.5 L Albumin Cancelled 3.4 Globulin Cancelled 2.1 L Albumin/Globulin Ratio Cancelled 1.6 Urine Color Urine Appearance Urine pH Ur Specific [place] Urine Protein Urine Glucose (UA) Urine Ketones Urine Blood Urine Nitrite Urine Bilirubin Urine Urobilinogen Ur Leukocyte Esterase 09/17/22 09/17/22 09/17/22 07:44 11:18 12:06 WBC RBC Hgb Hct MCV MCH MCHC RDW Std Deviation RDW Coeff of Michelle Plt Count MPV Immature Gran % (Auto) Neut % (Auto) Lymph % (Auto) [place] % (Auto) Eos % (Auto) Baso % (Auto) Neut # (Auto) Lymph # (Auto) [place] # (Auto) Eos # (Auto) Baso # (Auto) Immature Gran # (Auto) Sodium Potassium Chloride Carbon Dioxide Anion Gap BUN Creatinine Est Cr Clr Drug Dosing Est GFR ( Amer) Est GFR (Non-Af Amer) BUN/Creatinine Ratio Glucose POC Glucose 117 H 127 H Estimat Average Glucose Hemoglobin A1c Calcium Total Bilirubin AST ALT Alkaline Phosphatase Troponin I High Sens 29.1 H Total Protein Albumin Globulin Albumin/Globulin Ratio Urine Color Urine Appearance Urine pH Ur Specific [place] Urine Protein Urine Glucose (UA) Urine Ketones Urine Blood Urine Nitrite Urine Bilirubin Urine Urobilinogen Ur Leukocyte Esterase 09/17/22 09/17/22 09/17/22 16:19 17:41 20:37 WBC RBC Hgb Hct MCV MCH MCHC RDW Std Deviation RDW Coeff of Michelle Plt Count MPV Immature Gran % (Auto) Neut % (Auto) Lymph % (Auto) [place] % (Auto) Eos % (Auto) Baso % (Auto) Neut # (Auto) Lymph # (Auto) [place] # (Auto) Eos # (Auto) Baso # (Auto) Immature Gran # (Auto) Sodium Potassium Chloride Carbon Dioxide Anion Gap BUN Creatinine Est Cr Clr Drug Dosing Est GFR ( Amer) Est GFR (Non-Af Amer) BUN/Creatinine Ratio Glucose POC Glucose 96 106 H Estimat Average Glucose Hemoglobin A1c Calcium Total Bilirubin AST ALT Alkaline Phosphatase Troponin I High Sens 24.2 H Total Protein Albumin Globulin Albumin/Globulin Ratio Urine Color Urine Appearance Urine pH Ur Specific [place] Urine Protein Urine Glucose (UA) Urine Ketones Urine Blood Urine Nitrite Urine Bilirubin Urine Urobilinogen Ur Leukocyte Esterase Diagnostic Findings echo - EF 25-30% global hypokinesis PG Care Time/CCT Total # of Minutes Spent Total Time Spent with Patient: Total time spent is greater than 50% in coordination of care (as documented) at patient's floor/unit and/or counseling patient: Coding Level of Care Code 80300 Subseq Hosp Care Lvl 2 Diagnoses Atrial flutter I48.92 Acute systolic CHF (congestive heart failure) I50.21 SOB (shortness of breath) R06.02 Hypertension I10 Moderate persistent asthma J45.40 Sleep apnea G47.30 Prediabetes R73.03 Morbid obesity E66.01
--- NOTE | 2022-09-18 05:05 | Communication Note ---
Date of Service: September 18, 2022 Informed by nursing that cardiology had requested today's Xarelto be given at 630AM, before the morning cardioversion. I have ordered this. The daily Xarelto order for subsequent doses will need to be reordered, will defer timing of this to cardiology.
[2022-09-18] MEDS ORDERED: RIVAROXABAN 20 MG TAB PO ONE (06:30)
[2022-09-18 06:43] LABS: Albumin Globulin Ratio 1.7 (0.9-2); Albumin Level 3.4 gm/dl (3.4-5.0); BUN Creatinine Ratio 27.6 (10-20); Bilirubin,Total 0.9 mg/dl (0.2-1.0); Calcium 8.4 mg/dl (8.5-10.1); Creatinine Clr Calc Pharmacy 102.5 ml/min; Est GFR (African American) 90.2 ml/min; Est GFR (Non-African American) 77.8 ml/min; Potassium 4.3 mmol/L (3.5-5.1); Total Protein 5.4 gm/dl (6.0-8.3)
[2022-09-18] MEDS ORDERED: BENZOCAINE/TETRACAIN/BUTAM 50 APPLN/5 GM CAN EXT ONE (07:10)
[2022-09-18] MEDS ORDERED: LIDOCAINE 2% MPF LOCAL 5 ML VIAL INFIL ONE (07:30)
[2022-09-18] MEDS ORDERED: PROPOFOL IV EMULSION 10 MG/ML 20 ML VIAL IV ONE (07:30)
--- NOTE | 2022-09-18 07:38 | History & Physical Bridge Note ---
Date of Service September 18, 2022 History & Physical Bridge Note I have examined the patient, reviewed the History & Physical and in the interval since the performance of the History & Physical I have noted the following changes of clinical significance: no changes noted. Informed consent for VEENA cardioversion obtained. Pt elects to proceed.
--- NOTE | 2022-09-18 07:40 | Anesthesiology Consultation ---
Date of Service September 18, 2022 Assessment & Plan Chart Review Chart Review: Acceptable Risk for Surgery and Patient NOT seen in Pre Admission Testing Consults Requested none ASA ASA4 Proposed Anesthesia Anesthesia Type: MAC Risk / Benefits Reviewed With: PT / POA / Parent / Guardian, Accepts Plan and Informed Consent Obtained History Surgery Operation Date: 09/18/22 07:30 Proposed Procedures p Transesophageal Echo w/Anesthesia - Ravindra Arellano DO s Cardioversion - Ravindra Arellano DO Height/Weight Height: 6 ft Weight: 141.8 kg Allergies Allergy/AdvReac Type Severity Reaction Status Date / Time animal dander Allergy Mild congestion Verified 09/16/22 18:40 mold Allergy Mild congestion Verified 09/16/22 18:40 Medications Home Medications Medication Instructions Recorded Confirmed Last Taken allopurinol 300 mg tablet 300 mg PO PM #90 tabs 12/03/21 09/16/22 09/15/22 losartan 25 mg tablet 25 mg PO PM #90 tabs 12/03/21 09/16/22 09/15/22 metoprolol tartrate 25 mg tablet 25 mg PO BID #180 tabs 12/03/21 09/16/22 Unknown albuterol sulfate 90 mcg/actuation 2 puff inhalation Q6H PRN 04/08/22 09/16/22 Unknown aerosol inhaler (Ventolin HFA) shortness of breath or wheezing #8.5 grams amoxicillin 875 mg-potassium 1 tab PO BID 09/16/22 09/16/22 09/15/22 clavulanate 125 mg tablet meloxicam 15 mg tablet 15 mg PO DAILY 09/16/22 09/16/22 09/15/22 mometasone-formoterol HFA 200 2 inh inhalation BID 09/16/22 09/16/22 09/15/22 mcg-5 mcg/actuation aerosol inhaler (Dulera) prednisone 10 mg tablet 0 mg PO DIRECTED 09/16/22 09/16/22 09/15/22 Active Medications Generic Name Dose Route Start Last Admin Trade Name Freq PRN Reason Stop Dose Admin Allopurinol 300 mg 09/16/22 21:00 09/17/22 20:48 Allopurinol 300 Mg Tab PO 10/16/22 20:59 300 mg PM CARMEN Administration Fluticasone/Vilanterol 1 puffs 09/17/22 09:00 09/17/22 08:40 Fluticasone/Vilanterol 200/25mcg 14 Puffs/Inhaler INH 10/17/22 08:59 1 puffs DAILY CARMEN Administration Insulin Aspart 0 units 09/16/22 21:00 09/17/22 20:48 Insulin Aspart Per Unit SC 10/16/22 20:59 Not Given ACHS CARMEN Losartan Potassium 25 mg 09/16/22 21:00 09/17/22 20:48 Losartan Potassium 25 Mg Tab PO 10/16/22 20:59 25 mg PM CARMEN Administration Metoprolol Tartrate 25 mg 09/17/22 13:00 09/17/22 20:48 Metoprolol Tartrate 25 Mg Tab PO 10/17/22 12:59 25 mg QID CARMEN Administration Prednisone 10 mg 09/17/22 09:00 09/17/22 08:41 Prednisone 10 Mg Tablet PO 10/17/22 08:59 10 mg DAILY CARMEN Administration NPO Date Last Intake of Fluids: 09/17/22 Time Last Intake of Fluids: 23:00 Date Last Intake of Solids: 09/17/22 Time Last Intake of Solids: 18:00 Past Medical History Medical History Chronic sinusitis COPD (chronic obstructive pulmonary disease) Environmental allergies Gout attack History of colon polyps Hypertension Incomplete RBBB Morbid obesity Palpitations Prediabetes Sleep apnea Thyroid nodule Umbilical hernia Exercise / Class Metabolic Activity II 4-5 Yardwork/Stairs/Walk up hill Past Family History Family History Sister Bipolar disorder Colorectal cancer Grandfather Colorectal cancer Denies family history of Ovarian cancer Prostate cancer Myocardial infarction Breast cancer Past Surgical History Surgical History H/O left knee surgery Past Anesthesia History No Hx of Anesthesia Complications and No Family Hx of Anesthesia Complications History of PONV No Hx of PONV and No Hx of Motion Sickness Social History Smoking Status: Never smoker Hx Alcohol Use: No Hx Substance Use: No Physical Exam Vital Signs Last Vital Signs Temp 36.7 C 09/18/22 07:15 Pulse 117 H 09/18/22 07:15 Resp 20 09/18/22 07:15 BP 130/96 09/18/22 07:15 Pulse Ox 97 09/18/22 07:15 O2 Del Method 09/18/22 07:15 Constitutional + morbidly obese ENMT Mouth: no dentition abnormality Thyromental Distance: > or= 3.5 Finger Breadths Mallampati Class: II Neck normal visual inspection Respiratory normal respiratory effort Auscultation: lungs clear to auscultation bilaterally Cardiovascular Rate/Rhythm: + tachycardic; + abnormal rhythm Psychiatric Orientation: alert Testing Laboratory Results 09/17/22 05:58 09/18/22 05:46 Hemoglobin A1c 6.4 % (4.5-5.6) H 09/16/22 20:25 Urine Color Yellow 09/16/22 22:04 Urine Appearance Clear (Clear) 09/16/22 22:04 Urine pH 5.0 (4.5-7.5) 09/16/22 22:04 Ur Specific [place] > 1.045 (1.000-1.030) H 09/16/22 22:04 Urine Protein Negative (Negative) 09/16/22 22:04 Urine Glucose (UA) Negative (Negative) 09/16/22 22:04 Urine Ketones Negative (Negative) 09/16/22 22:04 Urine Nitrite Negative (Negative) 09/16/22 22:04 Ur Leukocyte Esterase Negative (Negative) 09/16/22 22:04 09/17/22 20:37 POC Glucose 106 H
--- NOTE | 2022-09-18 07:56 | Hospitalist Progress Note ---
Date of Service September 18, 2022 Assessment & Plan (1) Atrial flutter: Plan: Unclear if ongoing for past 3-4 weeks, thought asthma exacerbation, placed on steroids, then abx for a pneumonia. Had been improving but still with significant MANNING despite steroids and found to be in aflutter on admission and reported HR to the 140-150s and typically is in the 40-60s range Cardiology consulted --> Dr Adan Olvera Cont beta blockers for rate control. Severely depressed LV function on echo - likely tachy-arrhythmia induced by the a.flutter. Dr Arellano recommends VEENA cardioversion. Xarelto 20mg daily was initiated 09/17, dose ordered for this morning 09/18 petr or to cardioversion. CM checking on clemons s/p cardioversion this morning 09/[address] Arellano Continue Xarelto 20mg, ordered for tomorrow Monitor response with activity . Patient seen in afternoon but only minimal activity to bathroom/back but reported did not have recurrance of symptoms --> if remains in sinus rhythm as discussed with Dr Arellano, possible d/c 09/19. If patient flips back in may require repeat hospitalization. Planning to change metoprolol tartrate 25mg QID (taking at home) to succinate at discharge (2) Acute systolic CHF (congestive heart failure): Plan: EF 25-30% on repeat echo, likely due to rapid atrial flutter. Remains on beta blockers -- Remarkably he appears compensated from volume standpoint both clinically and radiographically. s/p VEENA AM 09/18 If we can control aflutter hopefully he will have recovery of his LV Function over time. Appreciate cardiology assistance and recs --> plans to switch metoprolol tartrate to succinate at discharge Continue losartan. Consider low-dose prn lasix at discharge for any weight gain, etc. (3) SOB (shortness of breath): Plan: Likely due to rapid aflutter and severe systolic CHF. See above. CTA chest without PE, pneumonia, or pulmonary edema. I suspect his dyspnea will improve once NSR is restored --> reported felt improved but hadn't been up/walking much --> continued monitoring/increase ambulation encouraged Doubt asthma contributing to current symptoms -- has been on titrated prednisone taper -- continued current taper (4) Hypertension: Plan: BP stable 102/65, denied any lightheaded/dizziness continue losartan continue metoprolol - see above regarding switching to succinate at d/c (5) Moderate persistent asthma: Plan: Seen by May allergy on 09/03/22. Placed on 16-day prednisone taper during that visit for suspected asthma exacerbation. It started with 40mg with slow wean down to 10mg. Currently on 10mg. Finish the taper. Likely the cause of his leukocytosis (but also noted tx for a possible pneumonia/collapsed lung at urgent care and given rx amoxicillin, changed to augmentin and had one day tx one admission) No wheezing on exam today. His asthma is not the cause of current symptoms. Cont dulera. (6) Sleep apnea: Plan: at risk of such given morbid obesity and large neck size along with crowded posterior pharynx sleep study strongly advised (7) Prediabetes: Plan: Hba1c 6.4% - borderline full-blown T2DM. 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 discussed ambulating and monitoring and possible d/c tomorrow if remains stable He had been traveling about 3-4 weeks ago back from [place] (prior w/ asthma exacerbation, seen at urgent care, called back 3 days later with possible pneumonia, placed on abx subseq, feeling better but breathing still worsened). Discussed multiple reasons for irregular rhythm. Denies family members testing positive for covid as working from home, but also endorsed other drivers sick. Other viruses going around. Currently breathing stable, no SOB. No cough/sputum production. Has been asthmatic since age 26, uses inhalers frequently at home. States exercise in duced. Questions/concerns addressed, checking $$ for xarelto. Hopeful for d/c tomorrow Review of Systems Review of Systems: All systems reviewed & are unremarkable except as noted in HPI & below Physical Exam Physical Exam: General : WN/WD, morbidely obese male sitting up in bed post- cardioversion, NAD HEENT: head normocephalic, atraumatic, mmm, trachea midline, +thick neck Resp: CTAB, no m/r/g on room air CV: regular rate/rhythm (PVC on monitor), no m/r/g, no calf tenderness, trace-1+ pitting edema b/l LE, pulses palpable GI: +BS, soft nontender MSK/Neuro: moves all extremities, no focal deficits, NVI Psych: AOX3, pleasant and cooperative Results & Data Results & Data ([facility]) Vital Signs (Past 12 Hours) Vital Signs Temp Pulse Pulse Resp BP Pulse Ox O2 Del Method 09/18/22 07:15 36.7 C 117 H 20 130/96 97 Room Air 09/17/22 23:00 85 09/18/22 04:00 36.6 C 104 H 20 131/90 93 Room Air 09/17/22 23:00 36.7 C 119 H 17 135/75 95 Room Air Laboratory Results 09/18/22 09/18/22 09/18/22 Range/Units 11:25 08:39 05:46 Sodium 140 (136-145) mmol/L Potassium 4.3 (3.5-5.1) mmol/L Chloride 105 (98-107) mmol/L Carbon Dioxide 32 (21-32) mmol/L Anion Gap 3 (3-11) BUN 27 H (6-23) mg/dl Creatinine 0.98 (0.6-1.4) mg/dl Est Cr Clr Drug Dosing 102.5 ml/min Est GFR ( Amer) 90.2 ml/min Est GFR (Non-Af Amer) 77.8 ml/min BUN/Creatinine Ratio 27.6 H (10-20) Glucose 117 H (70-99(Fasting)) mg/dl POC Glucose 180 H 104 H (70-99) mg/dl Calcium 8.4 L (8.5-10.1) mg/dl Total Bilirubin 0.9 (0.2-1.0) mg/dl AST 12 L (13-39) U/L ALT 17 (7-52) U/L Alkaline Phosphatase 53 (34-104) U/L Troponin I High Sens (0-20) pg/ml Total Protein 5.4 L (6.0-8.3) gm/dl Albumin 3.4 (3.4-5.0) gm/dl Globulin 2.0 L (2.5-4.0) gm/dl Albumin/Globulin Ratio 1.7 (0.9-2) 09/17/22 09/17/22 09/17/22 Range/Units 20:37 17:41 16:19 Sodium (136-145) mmol/L Potassium (3.5-5.1) mmol/L Chloride (98-107) mmol/L Carbon Dioxide (21-32) mmol/L Anion Gap (3-11) BUN (6-23) mg/dl Creatinine (0.6-1.4) mg/dl Est Cr Clr Drug Dosing ml/min Est GFR ( Amer) ml/min Est GFR (Non-Af Amer) ml/min BUN/Creatinine Ratio (10-20) Glucose (70-99(Fasting)) mg/dl POC Glucose 106 H 96 (70-99) mg/dl Calcium (8.5-10.1) mg/dl Total Bilirubin (0.2-1.0) mg/dl AST (13-39) U/L ALT (7-52) U/L Alkaline Phosphatase (34-104) U/L Troponin I High Sens 24.2 H (0-20) pg/ml Total Protein (6.0-8.3) gm/dl Albumin (3.4-5.0) gm/dl Globulin (2.5-4.0) gm/dl Albumin/Globulin Ratio (0.9-2) PG Care Time/CCT Total # of Minutes Spent Total Time Spent with Patient: Total time spent is greater than 50% in coordination of care (as documented) at patient's floor/unit and/or counseling patient: Coding Level of Care Code 96049 Subseq Hosp Care Lvl 3 Diagnoses Atrial flutter I48.92 Acute systolic CHF (congestive heart failure) I50.21 SOB (shortness of breath) R06.02 Hypertension I10 Moderate persistent asthma J45.40 Sleep apnea G47.30 Prediabetes R73.03 Morbid obesity E66.01
--- NOTE | 2022-09-18 08:05 | Anesthesiology Progress Note ---
Date of Service September 18, 2022 Anesthesia Post Procedure Vital Signs Vital Signs: Temp Pulse Pulse Resp BP Pulse Ox O2 Del Method 09/18/22 07:15 36.7 C 117 H 20 130/96 97 Room Air 09/17/22 23:00 85 09/18/22 04:00 36.6 C 104 H 20 131/90 93 Room Air 09/17/22 19:45 Room Air 09/17/22 23:00 36.7 C 119 H 17 135/75 95 Room Air 09/17/22 19:23 36.4 C L 101 H 20 114/67 95 Room Air 09/17/22 15:29 36.3 C L 92 H 20 111/82 94 Room Air 09/17/22 11:30 36.7 C 132 H 21 130/96 95 Room Air Transfer of Care Handoff Completed per policy Notes Mental Status: alert / awake / arousable Patient Amnestic to Procedure: Yes Nausea / Vomiting: adequately controlled Pain: adequately controlled Airway Patency, RR, SpO2: stable & adequate BP & HR: stable & adequate Hydration State: stable & adequate Anesthetic Complications: no major complications apparent
--- NOTE | 2022-09-18 08:10 | Cardioversion ---
Date of Service September 18, 2022 Electrical Cardioversion Rpt Electrical Cardioversion Report Date of Surgery September 18, 2022 Pre & Post Diagnosis Operation Date: 09/18/22 07:30 Preprocedure diagnosis: Symptomatic atrial flutter with rapid ventricular response, left ventricular systolic dysfunction Post procedure diagnosis: No left atrial appendage thrombus, successful conversion to sinus rhythm Procedure Transesophageal echocardiogram guided direct-current cardioversion procedure note: After informed consent was obtained and timeout was performed the patient was sedated with the assistance of the anesthesia service receiving a total of 120 mg of IV propofol and 80 mg of IV lidocaine. A focused goal-directed transesophageal echocardiogram was performed revealing severe global left ventricular hypokinesis. The left atrium was dilated to at least a moderate degree with no obvious thrombus. The left atrial appendage was well visualized with noted hypocontractility. No left atrial appendage thrombus noted. Patient then underwent direct-current cardioversion receiving a single dose of 200 J of synchronized biphasic energy. Solar Energy Sales Specialist Ravindra Arellano DO Shipping Weigher Kirsten Jefferson RN Estimated Blood Loss 0 Findings as noted above Anesthesia Type MAC Complications none
--- NOTE | 2022-09-18 08:36 | Cardiology Progress Note ---
Date of Service September 18, 2022 Assessment & Plan (1) Atrial flutter: (2) PVCs (premature ventricular contractions): (3) Left ventricular systolic dysfunction: Plan: Patient underwent VEENA cardioversion this morning. Post procedure EKG performed at 801 revealed sinus rhythm at 70 bpm with occasional PVCs, corrected QT interval normal at 440 ms. Noted severe left ventricular systolic dysfunction likely tachycardia induced. Continue metoprolol tartrate 25 mg 4 times daily, short acting formulation being utilized for the purpose of ease of titration, given left ventricular systolic dysfunction, will transition to succinate at discharge. Continue prior to treatment with losartan 25 mg daily. Continue Xarelto for stroke prophylaxis. Received a dose at 6 AM this morning prior to procedure, next dose a.m. of 09/19/2022. -Remain in hospital on telemetry. Increase activity as tolerated today. -If remains in sinus rhythm, possible discharge 09/19/2022 Admission and Anticipated Discharge Date Admission Date: September 16, 2022 Subjective Patient reassessed post cardioversion. Feeling well. Speech is fluent. No neurologic deficits. Physical Exam Physical Exam: Temp Pulse Resp BP Pulse Ox O2 Del Method 36.7 C 76 18 92/67 L 94 09/18/22 07:15 09/18/22 08:15 09/18/22 08:15 09/18/22 08:15 09/18/22 08:15 09/18/22 08:15 Constitutional: WD/WN, vitals as above Respiratory: normal respiratory effort, lungs clear to auscultation Cardiovascular: Rate/Rhythm: regular rate and regular rhythm Heart Sounds: normal S1 and normal S2; no murmur Gastrointestinal (Abdomen): normal bowel sounds, soft, nontender, no hepatosplenomegaly Neurologic: PERRL, EOMI, accommodation nl, no face palsy, no dysarthria Results & Data ([facility]) Vital Signs (Past 12 Hours) Vital Signs Temp Pulse Pulse Resp BP Pulse Ox O2 Del Method 09/18/22 08:15 76 18 92/67 L 94 Room Air 09/18/22 08:00 73 18 100/61 96 Room Air 09/18/22 07:15 36.7 C 117 H 20 130/96 97 Room Air 09/17/22 23:00 85 09/18/22 04:00 36.6 C 104 H 20 131/90 93 Room Air 09/17/22 23:00 36.7 C 119 H 17 135/75 95 Room Air Laboratory Results Cardiac Enzymes 09/17/22 09/17/22 09/18/22 Range/Units 12:06 17:41 05:46 AST 12 L (13-39) U/L Troponin I High Sens 29.1 H 24.2 H (0-20) pg/ml Comprehensive Metabolic Panel 09/18/22 Range/Units 05:46 Sodium 140 (136-145) mmol/L Potassium 4.3 (3.5-5.1) mmol/L Chloride 105 (98-107) mmol/L Carbon Dioxide 32 (21-32) mmol/L BUN 27 H (6-23) mg/dl Creatinine 0.98 (0.6-1.4) mg/dl Glucose 117 H (70-99(Fasting)) mg/dl Calcium 8.4 L (8.5-10.1) mg/dl AST 12 L (13-39) U/L ALT 17 (7-52) U/L Alkaline Phosphatase 53 (34-104) U/L Total Protein 5.4 L (6.0-8.3) gm/dl Albumin 3.4 (3.4-5.0) gm/dl Intake and Output 09/17/22 09/18/22 09/18/22 22:59 06:59 14:59 Intake Total 240 / 760 100 / 760 Balance 240 / 760 100 / 760 Intake: Oral 240 / 760 100 / 760 Other: Weight 141.8 kg 141.8 kg Weight Measurement Method Built in [facility] Patient Weight 09/19/22 06:59 Weight 141.8 kg (1) Atrial flutter Atrial flutter type: unspecified Qualified Code(s): I48.92 - Unspecified atrial flutter
--- NOTE | 2022-09-18 09:03 | Electrocardiogram Report ---
Test Reason : Blood Pressure : / mmHG Vent. Rate : 070 BPM Atrial Rate : 070 BPM P-R Int : 186 ms QRS Dur : 092 ms QT Int : 408 ms P-R-T Axes : 043 -49 063 degrees QTc Int : 440 ms Sinus rhythm with occasional Premature ventricular complexes Left axis deviation Old Inferior infarct Abnormal ECG When compared with ECG of 16-SEP-2022 15:57, Sinus rhythm has replaced Atrial flutter Vent. rate has decreased BY 35 BPM Criteria for Inferior infarct now present Confirmed by Km Powell ([id number]) on 09/18/2022 9:03:05 AM Referred By: Dominic Sawyer Confirmed By:Km Powell
[2022-09-18] MEDS: FLUTICASONE/VILANTEROL 200/25MCG 14 PUFFS/INHALER INH SCH (10:47)
[2022-09-18] MEDS: predniSONE 10 MG TABLET PO SCH (10:47)
[2022-09-18] MEDS: METOPROLOL TARTRATE 25 MG TAB PO SCH ×4 (10:47→19:57)
[2022-09-18] MEDS: INSULIN ASPART PER UNIT SC SCH ×4 (10:48→22:08)
[2022-09-18] MEDS: LOSARTAN POTASSIUM 25 MG TAB PO SCH (19:57)
[2022-09-18] MEDS: allopurinoL 300 MG TAB PO SCH (19:57)
[2022-09-19 07:41] LABS: Albumin Globulin Ratio 1.6 (0.9-2); Albumin Level 3.9 gm/dl (3.4-5.0); BUN Creatinine Ratio 33.3 (10-20); Bilirubin,Total 0.9 mg/dl (0.2-1.0); Calcium 8.7 mg/dl (8.5-10.1); Creatinine Clr Calc Pharmacy 104.1 ml/min; Est GFR (African American) 92.4 ml/min; Est GFR (Non-African American) 79.8 ml/min; Globulin 2.5 gm/dl (2.5-4.0); Magnesium 2.5 mg/dl (1.7-2.4); Total Protein 6.4 gm/dl (6.0-8.3)
--- NOTE | 2022-09-19 07:45 | Hospitalist Progress Note ---
Date of Service September 19, 2022 Assessment & Plan (1) Atrial flutter: Plan: Unclear if ongoing for past 3-4 weeks, thought asthma exacerbation, placed on steroids, then abx for a pneumonia. Had been improving but still with significant MANNING despite steroids and found to be in aflutter on admission and reported HR to the 140-150s and typically is in the 40-60s range Cardiology consulted --> Dr Adan Olvera Cont beta blockers for rate control. Severely depressed LV function on echo - likely tachy-arrhythmia induced by the a.flutter. Dr Arellano recommends VEENA cardioversion. Xarelto 20mg daily was initiated 09/17, dose ordered for this morning 09/18 petr or to cardioversion. CM checking on clemons s/p cardioversion this morning 09/[address] Arellano Continue Xarelto 20mg, ordered for tomorrow Monitor response with activity . Patient seen in afternoon but only minimal activity to bathroom/back but reported did not have recurrance of symptoms --> if remains in sinus rhythm as discussed with Dr Arellano, possible d/c 09/19. If patient flips back in may require repeat hospitalization. Planning to change metoprolol tartrate 25mg QID (taking at home) to succinate at discharge (2) Acute systolic CHF (congestive heart failure): Plan: EF 25-30% on repeat echo, likely due to rapid atrial flutter. Remains on beta blockers -- Remarkably he appears compensated from volume standpoint both clinically and radiographically. s/p VEENA AM 09/18 If we can control aflutter hopefully he will have recovery of his LV Function over time. Appreciate cardiology assistance and recs --> plans to switch metoprolol tartrate to succinate at discharge Continue losartan. Consider low-dose prn lasix at discharge for any weight gain, etc. (3) SOB (shortness of breath): Plan: Likely due to rapid aflutter and severe systolic CHF. See above. CTA chest without PE, pneumonia, or pulmonary edema. I suspect his dyspnea will improve once NSR is restored --> reported felt improved but hadn't been up/walking much --> continued monitoring/increase ambulation encouraged Doubt asthma contributing to current symptoms -- has been on titrated prednisone taper -- continued current taper (4) Hypertension: Plan: BP stable 102/65, denied any lightheaded/dizziness continue losartan continue metoprolol - see above regarding switching to succinate at d/c (5) Moderate persistent asthma: Plan: Seen by [facility] on 09/03/22. Placed on 16-day prednisone taper during that visit for suspected asthma exacerbation. It started with 40mg with slow wean down to 10mg. Currently on 10mg. Finish the taper. Likely the cause of his leukocytosis (but also noted tx for a possible pneumonia/collapsed lung at urgent care and given rx amoxicillin, changed to augmentin and had one day tx one admission) No wheezing on exam today. His asthma is not the cause of current symptoms. Cont dulera. (6) Sleep apnea: Plan: at risk of such given morbid obesity and large neck size along with crowded posterior pharynx sleep study strongly advised (7) Prediabetes: Plan: Hba1c 6.4% - borderline full-blown T2DM. 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 to prevent any needs for insulin in the future Patient refusing insulin sliding scale during inpatient stay -- will need continued discussions (8) Morbid obesity: Plan: BMI 43 diet/exercise recommended Plan monitoring on telemetry overnight, possible d/c tomorrow CM clemons checking Xarelto Admission and Anticipated Discharge Date Admission Date: September 16, 2022 Results & Data Results & Data ([facility]) Vital Signs (Past 12 Hours) Vital Signs Temp Pulse Pulse Pulse Resp BP Pulse Ox 09/18/22 23:00 62 09/19/22 03:51 36.6 C 63 18 90/62 L 96 09/18/22 22:50 36.4 C L 70 18 110/72 92 09/18/22 20:06 O2 Del Method 09/18/22 23:00 09/19/22 03:51 Room Air 09/18/22 22:50 Room Air 09/18/22 20:06 Room Air PG Care Time/CCT Total # of Minutes Spent Total Time Spent with Patient: Total time spent is greater than 50% in coordination of care (as documented) at patient's floor/unit and/or counseling patient: Coding Diagnoses Atrial flutter I48.92 Acute systolic CHF (congestive heart failure) I50.21 SOB (shortness of breath) R06.02 Hypertension I10 Moderate persistent asthma J45.40 Sleep apnea G47.30 Prediabetes R73.03 Morbid obesity E66.01
[2022-09-19] MEDS: METOPROLOL TARTRATE 25 MG TAB PO SCH (08:48)
[2022-09-19] MEDS: predniSONE 10 MG TABLET PO SCH (08:48)
[2022-09-19] MEDS: FLUTICASONE/VILANTEROL 200/25MCG 14 PUFFS/INHALER INH SCH (08:48)
[2022-09-19] MEDS ORDERED: RIVAROXABAN 20 MG TAB PO SCH (09:00)
[2022-09-19] MEDS: INSULIN ASPART PER UNIT SC SCH (09:24)
--- NOTE | 2022-09-19 09:58 | Cardiology Progress Note ---
Date of Service September 19, 2022 Assessment & Plan (1) Atrial flutter: (2) PVCs (premature ventricular contractions): (3) Left ventricular systolic dysfunction: Plan: Patient with h/o asymptomatic frequent PVCs, LVEF 45-49%, with initial cardiac workup in 2016 including a nuclear stress test with normal perfusion. He has a h/o RBBB. LVEF 25-30% this admission in the setting of persistent atrial flutter with rapid ventricular response, perhaps acute worsening of LVEF due to tachycardia. Underwent VEENA CV on 09/18/22 with successful conversion to SR. 9 beat run of asymptomatic NSVT noted. Patient stable for discharge on DOAC (Xarelto or Eliquis). Discharge on metoprolol succinate 50 mg BID (instead of PERMAST[employer] metoprolol tartrate 25 mg BID). Will likely need a repeat ischemic evaluation, however will delay in effort to not have him acutely relapse back in to atrial flutter. We discuss option of a Life Vest as bridge therapy pending further work up, however patient politely declines. -Outpatient cardiology follow up in 1-3 weeks. I will contact office. Admission and Anticipated Discharge Date Admission Date: September 16, 2022 Subjective Patient seen in cardiology follow-up. He notes feeling well. He still has some degree of subjective shortness of breath, but feels significantly better. He has mild bilateral lower extremity edema, which he states is chronic. Telemetry reveals sinus rhythm in the 60s with occasional PVCs. There was a 10 beat run of nonsustained ventricular tachycardia observed overnight last night at 23: 55, with no associated symptoms. Review of Systems Review of Systems: All systems reviewed & are unremarkable except as noted in HPI & below Physical Exam Constitutional: WD/WN, vitals as above Respiratory: normal respiratory effort, lungs clear to auscultation Cardiovascular: RRR, no murmur, no edema Gastrointestinal (Abdomen): normal bowel sounds, soft, nontender, no hepatosplenomegaly Neurologic: PERRL, EOMI, accommodation nl, no face palsy, no dysarthria Results & Data ([facility]) Vital Signs (Past 12 Hours) Vital Signs Temp Pulse Pulse Pulse Resp BP Pulse Ox 09/19/22 07:30 36.4 C L 59 L 18 108/70 95 09/18/22 23:00 62 09/19/22 03:51 36.6 C 63 18 90/62 L 96 09/18/22 22:50 36.4 C L 70 18 110/72 92 O2 Del Method 09/19/22 07:30 Room Air 09/18/22 23:00 09/19/22 03:51 Room Air 09/18/22 22:50 Room Air (1) Atrial flutter Atrial flutter type: unspecified Qualified Code(s): I48.92 - Unspecified atrial flutter
[2022-09-19] MEDS ORDERED: METOPROLOL SUCC 50MG EXT REL TAB PO SCH (10:00)
--- NOTE | 2022-09-19 10:32 | Discharge Summary ---
Date of Service September 19, 2022 Admission HPI Per Admitting Provider Bruno is a 71 year old male with a PMH significant for HTN, Frequent PVC's, aortic root dilation (4.2 CM as of 01/2022), HFrEF (LVEF of 40-45%), morbid obesity, prediabetes, COPD, moderate-persistent asthma, gout, who presented to the [facility] ED from an acute care center after being found to be in atrial flutter. In the ED the patient was found to be afebrile, hemodynamically stable, stable on RA, and tachycardic (highest HR in the 150's). Initial EKG in the ED showed Atrial flutter with variable A-V block. Labs were remarkable for a leukocytosis of 12.33, absolute neutrophil count of 9.11, stable renal function and electrolytes (waiting on magnesium to result), high sensitivity troponin of 29.8. Chest xray was negative for acute findings. CTA of the chest showed " Motion compromised examination.There is no evidence of pulmonary embolus in the main, lobar, or proximal segmental pulmonary arteries.Marked cardiomegaly and trace pleural effusions. Mildly enlarged mediastinal lymph nodes are nonspecific and may be reactive." Prior to admission the patient was given 1L NSS bolus, Diltiazem bolus of 15 mg, 5 mg IV metoprolol, and 324 mg PO aspirin. The patient's HR fell to the 90's after the initial interventions but repeat EKG showed him still to be in atrial flutter. The patient remained asymptomatic throughout his time in the ED. We were asked to admit the patient for further evaluation and possible cardioversion in the AM. At the time of the exam the patient was resting comfortably in bed in no acute distress with his sitting bedside. He states that he has been dealing with increased SOB with exertion for the past 2-3 weeks. He initially thought this was do to his chronic respiratory issues but his albuterol inhaler was not improving his symptoms. He denies recent fever or chills, cough, sputum production, chest pain, or lightheadedness. He was seen in the acute care clinic at the beginning of the month and completed a course of amoxicillin and prednisone taper. His symptoms did not improve dramatically and he was seen in the allergy/immunology on 09/03/22, per their note, they were concerned for asthma exacerbation and started him on another prednisone taper (of which he is still on), and changed his advair to Dulera 200 mcg, 2 puffs, BID. Since then he states that his symptoms have persisted. He notes being started on Augmentin as well and states that he has one more day until he completes his course. He states that his pulse has been high (up to the 150's) over the past 1-2 weeks. He went to his PCP's office today and they instructed him to come to the ED when he was found to be in aflutter. He denies any SOB or other symptoms at rest. With exertion, he is only experiencing SOB and denies chest pain, lightheadedness, dizziness, or other symptoms. Admission Exam Per Admitting Provider Physical Exam: General:In no acute distress, stated age, chronically ill-appearing HEENT:Normocephalic, atraumatic, no scleral icterus, pupils around round, symmetrical, and reactive to light, moist mucus membranes, trachea midline, no thyromegaly Chest/Pulm:No respiratory distress, symmetrical chest expansion, mild expiratory wheezing throughout Cardiac:tachycardic rate, irregular rhythm, no murmurs noted Abdomen:Negative for ascites and bruising, normoactive bowel sounds, soft, non-tender to palpation throughout Musculoskeletal:Symmetrical and without signs of acute trauma, upper and lower extremities with full ROM, no atrophy, spasticity, or flaccidity Extremities:Radial, dorsalis pedis, and posterior tibial pulses are intact and symmetrical, no edema noted in the BL LE's Skin:Warm, dry, no rashes , lesions, or scars noted Neuro:Alert and oriented to person, place, month, year, and president, no focal defects, CN II-XII tested and intact, finger to nose test negative, no tremors noted Psych:No acute distress, calm and cooperative during the exam Principal Diagnosis Atrial Flutter, Discharge Exam General : WN/WD, morbidly obese male sitting up in bed, NAD HEENT: head normocephalic, atraumatic, mmm, trachea midline, +thick neck Resp: CTAB, no m/r/g on room air CV: regular rate/rhythm (occasional PVC on monitor), no m/r/g, no calf tenderness, trace-1+ pitting edema b/l LE, pulses palpable GI: +BS, soft nontender MSK/Neuro: moves all extremities, no focal deficits, NVI Psych: AOX3, pleasant and cooperative Discharge Data Allergies Allergy/AdvReac Type Severity Reaction Status Date / Time animal dander Allergy Mild congestion Verified 09/16/22 18:40 mold Allergy Mild congestion Verified 09/16/22 18:40 Consultations 09/16/22 18:26 ED Decision to Admit Stat 09/16/22 18:58 Consult Cardiology Routine 09/17/22 11:02 Consult Anesthesiology Routine Procedures Performed Operation Date: 09/18/22 07:30 Actual Procedures p Echo Transesophageal - DO pari Shipman Echo Color Flow - DO pari Shipman Cardioversion - Ravindra Arellano DO Ordered Studies Chest X-Ray 09/16/22 15:34 SINGLE VIEW CHEST CLINICAL HISTORY: Dyspnea. FINDINGS: An AP, portable, upright chest radiograph is correlated with chest CT dated 09/09/2017. The examination is degraded by portable technique and apical lordotic positioning. The heart is enlarged noting atherosclerotic calcification of the thoracic aorta. The pulmonary vasculature is noncongested. Scarring/atelectasis is seen at the lung bases. A calcified granuloma is again seen in the right upper lobe. The lungs and pleural spaces are otherwise clear. No pneumothorax is seen. The skeletal structures are osteopenic. The bony thorax is grossly intact. Arthritic change is seen in the shoulders. IMPRESSION: No active disease in the chest. ACT 112: Negative or not required by law. Electronically signed by: Fuentes Pizarro M.D. 09/16/2022 4:20 PM Chest CTA 09/16/22 17:23 CT ANGIOGRAM OF THE CHEST CLINICAL HISTORY: Dyspnea. Tachycardia. COMPARISON STUDY: Chest CT dated 09/09/2017. Chest x-ray dated 09/16/2022. TECHNIQUE: Following the IV administration of 114 cc of Optiray 320, CT angiogram of the chest was performed from the upper abdomen to the thoracic inlet utilizing the pulmonary embolus protocol. Images are reviewed in the axial, sagittal, and coronal planes. 3-D MIPS images are created and assessed. IV contrast was administered without complication. A dose lowering technique was utilized adhering to the principles of ALARA. The examination is degraded by motion artifact. CT DOSE: 933.35 mGy.cm FINDINGS: Thyroid: Imaged portions of the thyroid gland are normal in size and attenuation. Thoracic aorta: The thoracic aorta is normal in caliber and demonstrates standard 3-vessel arch anatomy. The thoracic aorta is not opacified. Pulmonary vasculature: The pulmonary trunk is normal in caliber. There are no filling defects identified in main, lobar, or proximal segmental pulmonary branches to suggest pulmonary embolus. The segmental and subsegmental vessels are not well assessed due to motion artifact. Heart: The heart is markedly enlarged and without pericardial effusion. The coronary arteries are densely calcified. Lungs and pleural spaces: Evaluation of the lung parenchyma is compromised by motion artifact. There are trace pleural effusions with dependent atelectasis. No airspace consolidation is seen typical for pneumonia. The trachea and central airways are clear. There are scattered calcified granulomas. Mediastinum: Mildly enlarged mediastinal lymph nodes measure up to 15 mm in short axis. Iram: Clear. Axillae: There is no axillary lymphadenopathy. Upper abdomen: There is a tiny hiatal hernia. Diverticula are noted in the partially imaged left colon. Skeletal structures: The skeletal structures are osteopenic. No lytic or blastic bony lesions are seen. IMPRESSION: 1. Motion compromised examination. 2. There is no evidence of pulmonary embolus in the main, lobar, or proximal segmental pulmonary arteries. 3. Marked cardiomegaly and trace pleural effusions. 4. Mildly enlarged mediastinal lymph nodes are nonspecific and may be reactive. 5. Additional findings as above. ACT 112: Negative or not required by law. Electronically signed by: Fuentes Pizarro M.D. 09/16/2022 5:58 PM 09/17 ECHOCARDIOGRAM Atrial flutter with RVR noted at time of echocardiogram. LV moderately dilated. Severe global hypokinesis of left ventricle. LV systolic function severely reduc ed. LV ejection fraction 25-30%. RV normal in size and function. At least mild mitral regurgitation is present with eccentric MR jet noted. Mild tricuspid regurgitation. Mild pulmonary hypertension is present. The pulmonary artery systolic pressure is estimated to be 40mmhg. 09/18 Transesophageal Echocardiogram A focus goal directed study was performed for risk stratification prior to direct-current cardioversion. Limited relevant views obtained. Atrial flutter with rapid ventricular response, ventricular rate 130-150bpm present at time of echocardiogram. Diffuse sevre left ventricular hypokinesis is present. Qualitative LV ejection fraction 25% (severely diminished). Left atrium is dilated to moderate to severe degree. No left atrial mass or thrombus visualize d. No thrombus detected in the left atrial appendage Hospital Course (1) Atrial flutter: Unclear if ongoing for past 3-4 weeks, thought asthma exacerbation, placed on steroids, then abx for a pneumonia. Had been improving but still with significant MANNING despite steroids and found to be in aflutter on admission and reported HR to the 140-150s and typically is in the 40-60s range. Of note, he does note family with possible covid (no testing though) about three to four weeks prior, which could have been the onset of his aflutter as well Cardiology consulted --> Dr Adan Olvera Continued beta blockers for rate control --> changed to metoprolol succinated 50mg BID from tartrate 25mg QID per cardiology recommendations Severely depressed LV function on echo - likely tachy-arrhythmia induced by the a.flutter. s/p VEENA and cardioversion on 09/[address] Arellano Remained in NSR on telemetry after, reported decreased MANNING (much improved) Hopefully with rastafari of NSR, will have improvement in EF in follow up- (will need repeat ischemic evaluation but delay due to not have acutely relapse back into atrial flutter). Did have 9 beat run asymptomatic NVST noted overnight 09-18 into 09/19 Cardiology did discuss option of life vest as bridge therapy pending further work up , patient declined Started and Xarelto 20mg daily -- coupon provided, clemons checked 20$ a month Discussed AVOIDING NSAIDs (meloxicam on med rec -- uses for his R knee--> couple tablets left). DISCONTINUED. Rec Tylenol arthritis for pain control/topical voltaren (reported use topical voltaren in past but not always with him on the road -- rec throwing tube in his bag to ensure he has it with him for continued relief if issues) Also discussed f/u with PCP about SGLT-2 possibly being added given pre-DM to help with heart failure as well, but suspected from tachycardia/aflutter as above. Did review low salt diet (reported loves salt) and weight loss/dietary changes overall. If patient has recurrence of symptoms, to return to ER (2) Acute systolic CHF (congestive heart failure): EF 25-30% on repeat echo, likely due to rapid atrial flutter. Remains on beta blockers -- Remarkably he appears compensated from volume standpoint both clinically and radiographically. s/p VEENA AM 09/18 , remained in normal rhythm If we can control aflutter hopefully he will have recovery of his LV Function over time. Appreciate cardiology assistance and recs --> planned switch metoprolol tartrate to succinate at discharge as outlined and to continue his usual losartan Weights down from admit, as above did discuss low salt diet as above. Will need close f/u with cardiology consider low dose prn lasix for weight gain however leg swelling had improved but still present. Do suspect acute drop in EF from elevated HR, but impossible to exclude additional causes --> follow up regarding possible prn dosing with PCP in follow up if able to limit sodium intake now that back in NSR and completed prednisone taper Will need ischemic work up in follow up with [facility]i , but as above d elayed due to not wanting to have patient acutely relapse back into fib/flutter (3) SOB (shortness of breath): Likely due to rapid aflutter and severe systolic CHF. See above. CTA chest without PE, pneumonia, or pulmonary edema. Dyspnea improved with rastafari of NSR, however still some exertional. Hopefully EF will improve with NSR Lung exam benign, lungs clear, remains on room air completed his prednisone taper as sent as outpatient for possible asthma exacerbation (suspect probably more tara was in aflutter at that time) (4) Hypertension: BP stable 102/65, denied any lightheaded/dizziness continued losartan , changed metoprolol to succinate as above (5) Moderate persistent asthma: Seen by [facility] on 09/03/22. Placed on 16-day prednisone taper during that visit for suspected asthma exacerbation. It started with 40mg with slow wean down to 10mg -- completed per patient, stopped on d/c med rec Currently on 10mg. Finish the taper. Likely the cause of his leukocytosis (but also noted tx for a possible pneumonia/collapsed lung at urgent care and given rx amoxicillin, changed to augmentin and had one day tx on admission) Afebrile, no wheezing on exam Asthma not cause of current sx Cont dulera. 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 ?if once retired possibly he would consider (7) Prediabetes: Hba1c 6.4% - borderline full-blown T2DM. Consider metformin at discharge -- patient wanted to hold off Does drive trucks, would highly recommend obtaining better control to prevent any needs for insulin in the future Did discuss with patient and Dr Arellano about adding SGLT-2 in follow up with PCP to help with heart failure/weight loss/etc. Patient is very interested in this, rec discussing starting in outpatient setting (8) Morbid obesity: BMI 43 diet/exercise recommended, low salt diet Plan discharge home metoprolol tartrate changed to succinate continue daily xarelto 20mg discussion about possible prn lasix in f/u PCP for weight gain, low salt diet encouraged to discuss with PCP about possible SGLT-2 in follow up, but did discuss may have to trial metformin first Total Time Total Time Spent Total Time Spent (In Minutes): 50 Discharge Plan Discharge Items Patient Disposition: Home - Self-Care Reason For Visit: ATRIAL FLUTTER Discharge Diagnosis: Atrial Flutter Goals: You have been hospitalized for an acute medical problem. During your stay at [facility], we have made an effort to correct the problem that brought you to the hospital while keeping you as comfortable as possible. Medications were used to bring your condition under control and your discharge instructions will include directions for any medications you should take after leaving the hospital. Please make sure you see your Primary Care Provider as part of your follow up plan. Activity: As commented below Non-emergency contact: Primary Care Provider and Live Truck Technician Call non-emergency contact if: you have any medication questions, your symptoms worsen and you have a fever Follow-up/Referrals: Dominic Sawyer CRNP [Primary Care Provider] - 09/27/22 9:00 am (Gabriel Chen) Ravindra Arellano DO [Live Truck Technician] - (1-3 weeks) Diet: Carb Consistent or DM2, Heart Healthy and Low Sodium (2gm) Addtl Attending Provider Instructions: You have been hospitalized for shortness of breath, felt likely to be related to irregular heart rhythm, which could have been caused by multiple factors. Dr Arellano was consulted and you underwent a cardioversion to restore normal rhythm and have been started and continued on xarelto 20mg to be taken daily. You should AVOID taking NSAIDs, including meloxicam during this time as they increase risk of bleeding and can damage kidneys, especially in patients with heart failure they are not recommended. Avoid Aleeve/naproxen/ibuprofen. Use Tylenol arthritis or topical Voltaren. You should monitor for any bleeding while on this and alert your doctor in that event. An ultrasound of your heart indicated low pumping function, which was likely from the elevated heart rate as well and hopefully with rastafari will improve on repeat in follow up with Dr Arellano. Your metoprolol has been switched to long acting, 50mg twice a day instead of the 25mg four times a day, which should also help with pumping of the heart and controlling your rate. They will discuss repeating ultrasound/ECHO and discussion of ischemic work up as outpatient. Please follow up with your PCP in the next 7-10 days to monitor your progress. Your A1c was elevated, indicating approaching diabetes. You should discuss about adding medication like jardiance to help with heart failure as outpatient but they may want you to try other medications first. Please follow up with Dr Arellano in the next 1-3 weeks as discussed. Please return to the ER with any increased shortness of breath, chest pain, or symptoms worrisome for you. It has been a pleasure being a part of the medical team providing for you while in the hospital. Take care! Pending Studies at Discharge: No Stand-Alone Forms: My [facility] [employer], Smoking Cessation Medications and DC Order Prescriptions: New metoprolol succinate 50 mg Tablet Extended Release 24 Hr 50 mg PO BID Qty: 60 0RF Xarelto 20 mg Tablet 20 mg PO DAILY Qty: 30 1RF Continued albuterol sulfate [Ventolin HFA] 90 mcg/actuation HFA aerosol inhaler 2 puff inhalation Q6H PRN (Reason: shortness of breath or wheezing) Qty: 8.5 1RF allopurinol 300 mg tablet 300 mg PO PM Qty: 90 3RF losartan 25 mg tablet 25 mg PO PM Qty: 90 3RF Dulera 200-5 mcg/actuation HFA aerosol inhaler 2 inh INHALATION BID Discontinued metoprolol tartrate 25 mg tablet 25 mg PO BID Qty: 180 3RF Rx Instructions: PER PT "USUALLY ONLY TAKE ONCE A DAY, IF DYSTOLIC B/P <50 WILL NOT TAKE". prednisone 10 mg tablet 0 mg PO DIRECTED Rx Instructions: TAKING DIRECTED. meloxicam 15 mg tablet 15 mg PO DAILY amoxicillin-pot clavulanate 875-125 mg tablet 1 tab PO BID Rx Instructions: STARTED 09/09/22 FOR 10 DAYS. Discharge Orders: Discharge Order (Routine); Ordered 09/19/22 Ordered By: Radha Marquis/Other Patient Handouts: Prediabetes, 5 Steps for Eating Healthier Admission Data Admit Date/Time: 09/16/22 18:27 Attending Provider: Narendra Hamlin Admit Provider: Bruno Diane Primary Care Provider: Dominic Sawyer Other Providers: Bruno Diane ; Ravindra Arellano ; Julián Penaloza Other Interventions: Discharge Summary Assessment (RN) Last Done: 09/19/22 10:57 Coding Level of Care Code D/C DAY MANAGEMENT >30 MINS Diagnoses Atrial flutter I48.92 Acute systolic CHF (congestive heart failure) I50.21 SOB (shortness of breath) R06.02 Hypertension I10 Moderate persistent asthma J45.40 Sleep apnea G47.30 Prediabetes R73.03 Morbid obesity E66.01
== END 2022-09-19 11:43 | disposition home or self-care (01) | DRG 308 ==
LOC: ED 15:19 → 2S 18:27 → SUATTDRO 18:27 → 2S 19:48
DX: J45.40 Moderate persistent asthma, uncomplicated; I50.21 Acute systolic (congestive) heart failure; J44.9 Chronic obstructive pulmonary disease, unspecified; I48.92 Unspecified atrial flutter; Z68.41 Body mass index [BMI] 40.0-44.9, adult; I47.1 Supraventricular tachycardia; Z88.8 Allergy status to other drugs, medicaments and biological substances; I49.3 Ventricular premature depolarization; I11.0 Hypertensive heart disease with heart failure; E66.01 Morbid (severe) obesity due to excess calories; G47.30 Sleep apnea, unspecified; R73.03 Prediabetes